=== PATIENT | female | born 1980 | race Caucasian/White ===

== ENCOUNTER 2021-04-25 10:58 | Outpatient (CLI) | payer OTHER, SELFPAY | END 2021-04-25 10:59 | disposition home or self-care (01) | LOC: ANHAUDIO 10:59 | DX: G43.919 Migraine, unspecified, intractable, without status migrainosus (principal) | CPT/HCPCS: 92557; 92567 ==

== ENCOUNTER 2024-03-20 11:17 | Outpatient (CLI) | payer OTHER, MEDICAID, SELFPAY ==
--- NOTE | ~2024-03-20 | CT_ITS ---
EXAMINATION: CT sinus wo con DATE: 03/20/2024 11:37 INDICATION: Maxillary sinusitis TECHNIQUE: Computed tomography (CT) of the paranasal sinuses was performed without intravenous contra st. The dose-length product was 269.39 mGy-cm. Automated exposure control and iterative reconstructio n technique were employed. COMPARISON: None FINDINGS: There is mild mucosal thickening of the maxillary and ethmoid sinuses. No air-fluid levels. Mastoids are pneumatized. Rightward nasal septal deviation. There is a left-sided jesús bullosa. Os tiomeatal units are patent. IMPRESSION: 1. Mild sinus disease. Reviewed, dictated and finalized at location B. IMPRESSION: 1. Mild sinus disease.
== END 2024-03-20 11:18 ==
LOC: MICIMG 11:18
PROVIDERS: PCP Nurse Practitioner Family; Visit Provider Otolaryngology
DX: J01.01 Acute recurrent maxillary sinusitis (principal)
CPT/HCPCS: 70486

== ENCOUNTER 2025-03-01 12:09 | Emergency (ER) | payer OTHER, MEDICAID, SELFPAY ==
[2025-03-01] VITALS (8 sets, daily range): BP systolic 127–146; BP diastolic 76–98; PULSE 68–111; RESP 15–20; TEMP 36.6; O2SAT 98–100
--- OUTSIDE RECORDS SUMMARY | 2025-03-01 12:11 | XMS_ITS | Patient Health Record ---
Author Organization [facility] Address [address] [facility] [address] [place] [address] Care Team Providers Care Legal Summer Intern Name Role Phone Larissa Barr Primary Care Provider UnavailEnrique Holden Unavailable [phone] Jerardo Brewer Unavailable [phone] aNv Etienne Unavailable [phone] Allergies Allergen (clinical drug ingredient) Drug/Non Drug Allergy documented on EMR Reaction Allergy Type Onset Date Status tetracycline Tetracycline Unknown Drug Allergy A ctive Results Component Value Reference Range Notes UDT Reviewed date:08/11/2024 09:20:08 AM Interpretation: Performing Lab: Notes/Report: THC n 0 - 50 ng/ml Cocaine n 0 - 300 ng/ml Amphetamine n 0 - 1000 ng/ml Buprenorphine (BUP) n 0 - 10 ng/ml Secobarbital (Bar) n 0 - 300 ng/ml Oxazepam (BZO) n 0 - 300 ng/ml 9-nygiarurqw-7,3-wmcoxsun-1,3-diphenylpyrrolidine (TOMAS P) n 0 - 300 ng/ml Methamphetamine (MET) n 0 - 1000 ng/ml Methylenedioxymethamphetamine (MDMA) n 0 - 500 ng/ml Morphine (MOP 300/[id number]) n 0 - 300 ng/ml Methadone (MTD) n 0 - 300 ng/ml Phencyclidine (PCP) n 0 - 25 ng/ml Nortriptyline (TCA) n 0 - 1000 ng/ml Oxycodone n 0 - 300 ng/ml x n 0 - 300 ng/ml UDT Reviewed date:08/07/2024 04:40:12 PM Interpretation: Performing Lab: Notes/Report: THC N 0 - 50 ng/ml Cocaine N 0 - 300 ng/ml Amphetamine N 0 - 1000 ng/ml Buprenorphine (BUP) N 0 - 10 ng/ml Secobarbital (Bar) N 0 - 300 ng/ml Oxazepam (BZO) N 0 - 300 ng/ml 6-cglbpmrjld-2,9-hmpkrrlv-9,3-diphenylpyrrolidine (TOMAS P) N 0 - 300 ng/ml Methamphetamine (MET) N 0 - 1000 ng/ml Methylenedioxymethamphetamine (MDMA) N 0 - 500 ng/ml Morphine (MOP 300/[id number]) N 0 - 300 ng/ml Methadone (MTD) N 0 - 300 ng/ml Phencyclidine (PCP) N 0 - 25 ng/ml Nortriptyline (TCA) N 0 - 1000 ng/ml Oxycodone N 0 - 300 ng/ml x N 0 - 300 ng/ml Reason For Referral No Information Medications Medication SIG (Take, Route, Frequency, Duration) Notes Start Date End Date Status Ondansetron 4 MG 1 tablet on the tong ue and allow to dissolve Orally Once a day Active Ketorolac Tromethamine 10 MG 1 tablet with food or milk as needed Orally every 6 hrs Active Meclizine HCl 25 MG 1 tablet as needed Orally every 12 hrs Active Cetirizine HCl 10 MG 1 tablet Orally Onc e a day Active Nurtec 75 MG 1 tablet on the tong ue and allow to dissolve Orally Active Verapamil HCl 120 MG 1 tablet Orally daily Active buPROPion HCl ER (XL) 150 MG 1 tablet in the morning Orally Once a day for 30 days 02/24/2025 Active Qelbree 200 MG 1 capsule Orally Onc e a day for 30 days Active Fluticasone Furoate 50 MCG/ACT 1 puff Inhalation Once a day Active Gabapentin 100 MG Oral for 30 Days Not-Taking Social History Tobacco Use: Social History Observation Description Date Details (start date - stop date) Never Smoker NA - NA Sex Assigned At : Social History Observation Description Sex Assigned At Female Tobacco Control (Standard) Question Answer Notes Tobacco use: Nonsmoker AUDIT-C (Standard) Question Answer Notes Did you have a drink containing alcohol in the p ast year? No Problems Problem Type SNOMED Code ICD Code Onset Dates Problem Status W/U Status Risk Notes Problem [id number] DEVYN (generalized anxiety disorder) (F41.1) Active confirmed Problem 21922199 ADHD (attention deficit hyperactivity disorder), combined type (F90.2) Active confirmed Problem 56294007 Difficulty concentrating (R41.840) Active confirmed Problem 44844616 Migraine without status migrainosus, not intractable, unspecified migraine type (G43.909) Active confirmed Vital Signs Heart Rate 100 /min 02/24/2025 Height-cm 162.56 cm 02/24/2025 Blood pressure diastolic 88 mm Hg 02/24/2025 Weight-kg 69.58 kg 02/24/2025 Height 64 in 02/24/2025 Blood pressure systolic 120 mm Hg 02/24/2025 Weight 153.4 lbs 02/24/2025 BMI 26.33 kg/m2 02/24/2025 Procedures Procedure Date Ordered Date Performed Result Body Sit e ADHD Testing 08/07/2024 N/A ADHD Testing 08/10/2024 N/A Encounters Encounter Location Date Provider Diagnosis [facility] Valentin Uzhun [place] [id number] [facility] [address] [address] 08/07/2024 [facility] Difficulty concentrating R41.840 [facility] Valentin [place] [address] [facility] [address] [facility] [address] [place] [address] 08/10/2024 Jerardo Brewer Difficulty concentrating R41.840 [facility] [place] [address] [facility] [address] [address] 09/15/2024 Enrique Flores DEVYN (generalized anxiety disorder) F41.1 ; ADHD (attention deficit hyperactivity disorder), combined type F90.2 and Migraine without status migrainosus, not intractable, unspecified migraine type G43.909 [facility] Valentin Uzhun [facility] [address] [facility] [address] [address] 10/08/2024 Enrique Flores DEVYN (generalized anxiety disorder) F41.1 ; ADHD (attention deficit hyperactivity disorder), combined type F90.2 and Migraine without status migrainosus, not intractable, unspecified migraine type G43.909 [facility] [address] [facility] [address] [address] 11/09/2024 Jerardo Osman DEVYN (generalized anxiety disorder) F41.1 ; ADHD (attention deficit hyperactivity disorder), combined type F90.2 and Migraine without status migrainosus, not intractable, unspecified migraine type G43.909 [facility] [address] [facility] [address] [facility] [address] [place] [address] 12/16/2024 Enrique Redmonda Encounter for screen ing for cardiovascular disorders Z13.6 ; DEVYN (generalized anxiety disorder) F41.1 ; ADHD (attention deficit hyperactivity disorder), combined type F90.2 and Migraine without status migrainosus, not intractable, unspecified migraine type G43.909 [facility] [employer] [facility] [address] [address] 01/20/2025 Enrique Clarkoza ADHD (attention defi cit hyperactivity disorder), combined type F90.2 ; Encounter for screening for depression Z13.31 ; Encounter for screening for cardiovascular disorders Z13.6 ; DEVYN (generalized anxiety disorder) F41.1 and Migraine without status migrainosus, not intractable, unspecified migraine type G43.909 [facility] [employer] [place] [address] [facility] [address] [facility] [address] [place] [address] 02/24/2025 Enrique Flores Encounter for screen ing for depression Z13.31 ; ADHD (attention deficit hyperactivity disorder), combined type F90.2 ; Encounter for screening for cardiovascular disorders Z13.6 ; DEVYN (generalized anxiety disorder) F41.1 and Migraine without status migrainosus, not intractable, unspecified migraine type G43.909 [facility] [employer] [place] [address] [facility] [address] [address] 11/17/2024 Enrique Flores [place] [address] [email or web address] [address] [address] 09/25/2024 Enrique Flores ADHD (attention defi cit hyperactivity disorder), combined type F90.2 [facility] [employer] [place] [address] [email or web address] [address] [facility] [address] [place] [address] 2024 Enrique Flores Assessments Encounter Date Diagnosis (ICD Code) Assessment Notes Treatment Notes Treatment Clinical Notes Section Notes 08/07/2024 Difficulty concentrating (ICD-10 - R41.840) 1. Suspected ADHD - She presents with concerns about possible ADHD, reporting forgetfulness, difficulty concentrating, and inattentiveness. - Family history of ADHD with two sisters diagnosed. - Reports difficulty sustaining attention, getting distracted when spoken to directly, and being reluctant to engage in tasks requiring sustained mental effort. Plan: a. Order ADHD testing for the patient. b. Schedule a follow-up appointment to review the test results. c. Educate the patient about the hospital policy regarding stimulant medications and substance use. 2. Insomnia - Gets 8 hours when off work, but only 4-5 hours when working. Plan: a. Encourage the patient to maintain a consistent sleep schedule and practice good sleep hygiene. b. Consider further evaluation and management if sleep issues persist. 3. Elevated Blood Pressure - Blood pressure found to be elevated during the visit. - She reports it may have been increasing in recent months. Plan: a. Advise the patient to monitor her blood pressure at home. b. Schedule an appointment with her primary care provider for further assessment. c. Note that if blood pressure remains elevated, stimulant medications for ADHD may not be appropriate. 08/10/2024 Difficulty concentrating (ICD-10 - R41.840) 09/15/2024 DEVYN (generalized anxiety disorder) (ICD-10 - F41.1) hx depression 1. ADHD - Combined Presentation: - Patient reports forgetfulness, distractibility, and difficulty sitting still. History of struggling in school and difficulty with time management. - ADHD testing conducted on August 10 suggests combined presentation. Plan: - Initiate Concerta 18 mg, one tablet every morning. Two-week supply to be sent to the pharmacy. - Patient to message provider before the two weeks is up to discuss effectiveness and potential dose adjustments. - Follow-up appointment in one month. 2. Migraines: - Patient experiences migraines at least 5 days a week and daily headaches. - Currently taking Nurtec and verapamil for migraines. Plan: - Continue current migraine medications. - Monitor for potential worsening of migraines with the initiation of Concerta for ADHD. 3. Anxiety: - Patient reports feeling nervous, on edge, and overthinking. - No current medications for anxiety. Plan: - Monitor anxiety symptoms during ADHD treatment with Concerta, as improvement in ADHD symptoms may also improve anxiety. 4. Depression: - Patient has a history of depression in 2021 and saw a therapist. - No current medications for depression. Plan: - Monitor depression symptoms during ADHD treatment with Concerta, as improvement in ADHD symptoms may also improve depression. 5. Sleep Issues: - Patient reports difficulty sleeping and feeling tired during the day. Plan: - Monitor sleep during ADHD treatment with Concerta. - Advise patient not to take Concerta late in the day to minimize sleep interference. 6. Medication Side Effects: - Patient experienced hallucinations on Lexapro, which resolved after discontinuation. - Patient has not yet started gabapentin due to concerns about side effects. Plan: - Start Concerta at a low dose (18 mg) to minimize side effects. - Monitor for any adverse effects during the two-week check-in and one-month follow-up appointment. 09/15/2024 ADHD (attention deficit hyperactivity disorder), combined type (ICD-10 - F90.2) hx depression 1. ADHD - Combined Presentation: - Patient reports forgetfulness, distractibility, and difficulty sitting still. History of struggling in school and difficulty with time management. - ADHD testing conducted on August 10 suggests combined presentation. Plan: - Initiate Concerta 18 mg, one tablet every morning. Two-week supply to be sent to the pharmacy. - Patient to message provider before the two weeks is up to discuss effectiveness and potential dose adjustments. - Follow-up appointment in one month. 2. Migraines: - Patient experiences migraines at least 5 days a week and daily headaches. - Currently taking Nurtec and verapamil for migraines. Plan: - Continue current migraine medications. - Monitor for potential worsening of migraines with the initiation of Concerta for ADHD. 3. Anxiety: - Patient reports feeling nervous, on edge, and overthinking. - No current medications for anxiety. Plan: - Monitor anxiety symptoms during ADHD treatment with Concerta, as improvement in ADHD symptoms may also improve anxiety. 4. Depression: - Patient has a history of depression in 2021 and saw a therapist. - No current medications for depression. Plan: - Monitor depression symptoms during ADHD treatment with Concerta, as improvement in ADHD symptoms may also improve depression. 5. Sleep Issues: - Patient reports difficulty sleeping and feeling tired during the day. Plan: - Monitor sleep during ADHD treatment with Concerta. - Advise patient not to take Concerta late in the day to minimize sleep interference. 6. Medication Side Effects: - Patient experienced hallucinations on Lexapro, which resolved after discontinuation. - Patient has not yet started gabapentin due to concerns about side effects. Plan: - Start Concerta at a low dose (18 mg) to minimize side effects. - Monitor for any adverse effects during the two-week check-in and one-month follow-up appointment. 09/25/2024 ADHD (attention deficit hyperactivity disorder), combined type (ICD-10 - F90.2) 10/08/2024 DEVYN (generalized anxiety disorder) (ICD-10 - F41.1) 1. ADHD: - Patient was initially started on Concerta 18 mg and then increased to 36 mg. - Patient reported increased anxiety, heart pounding, and worsening of possible Raynaud's symptoms while on Concerta. - Patient reported that the medication was not overly helpful in managing ADHD symptoms. Plan: - Discontinue Concerta. - Start the patient on Azstarys (39.2-7.8 mg) as an alternative methylphenidate- based medication. - Prescribe a 10-day supply. - Instruct the patient to call or send a message with feedback on the medication's effectiveness and side effects. 2. Anxiety: - Patient reported increased anxiety while on Concerta, particularly heart pounding over situations that would not typically cause anxiety. Plan: - Monitor the patient's anxiety levels after starting Azstarys. - If anxiety persists or worsens, consider alternative non-stimulant medications such as Strattera (Atomoxetine) for ADHD management. 3. Possible Raynaud's Phenomenon: - Patient reported a suspicion of having Raynaud's and experiencing worsening symptoms while on Concerta. Plan: - Monitor the patient's symptoms after discontinuing Concerta and starting Azstarys. - If symptoms persist or worsen, consider further evaluation and referral to a specialist for a definitive diagnosis and management. 12/16/2024 Encounter for screening for cardiovascular disorders (ICD-10 - Z13.6) 11/09/2024 DEVYN (generalized anxiety disorder) (ICD-10 - F41.1) 01/20/2025 ADHD (attention deficit hyperactivity disorder), combined type (ICD-10 - F90.2) 02/24/2025 Encounter for screening for depression (ICD-10 - Z13.31) 02/24/2025 ADHD (attention deficit hyperactivity disorder), combined type (ICD-10 - F90.2) 02/24/2025 Encounter for screening for cardiovascular disorders (ICD-10 - Z13.6) 11/09/2024 ADHD (attention deficit hyperactivity disorder), combined type (ICD-10 - F90.2) 01/20/2025 Encounter for screening for depression (ICD-10 - Z13.31) 12/16/2024 DEVYN (generalized anxiety disorder) (ICD-10 - F41.1) 10/08/2024 ADHD (attention deficit hyperactivity disorder), combined type (ICD-10 - F90.2) 1. ADHD: - Patient was initially started on Concerta 18 mg and then increased to 36 mg. - Patient reported increased anxiety, heart pounding, and worsening of possible Raynaud's symptoms while on Concerta. - Patient reported that the medication was not overly helpful in managing ADHD symptoms. Plan: - Discontinue Concerta. - Start the patient on Azstarys (39.2-7.8 mg) as an alternative methylphenidate- based medication. - Prescribe a 10-day supply. - Instruct the patient to call or send a message with feedback on the medication's effectiveness and side effects. 2. Anxiety: - Patient reported increased anxiety while on Concerta, particularly heart pounding over situations that would not typically cause anxiety. Plan: - Monitor the patient's anxiety levels after starting Azstarys. - If anxiety persists or worsens, consider alternative non-stimulant medications such as Strattera (Atomoxetine) for ADHD management. 3. Possible Raynaud's Phenomenon: - Patient reported a suspicion of having Raynaud's and experiencing worsening symptoms while on Concerta. Plan: - Monitor the patient's symptoms after discontinuing Concerta and starting Azstarys. - If symptoms persist or worsen, consider further evaluation and referral to a specialist for a definitive diagnosis and management. 09/15/2024 Migraine without status migrainosus, not intractable, unspecified migraine type (ICD-10 - G43.909) hx depression 1. ADHD - Combined Presentation: - Patient reports forgetfulness, distractibility, and difficulty sitting still. History of struggling in school and difficulty with time management. - ADHD testing conducted on August 10 suggests combined presentation. Plan: - Initiate Concerta 18 mg, one tablet every morning. Two-week supply to be sent to the pharmacy. - Patient to message provider before the two weeks is up to discuss effectiveness and potential dose adjustments. - Follow-up appointment in one month. 2. Migraines: - Patient experiences migraines at least 5 days a week and daily headaches. - Currently taking Nurtec and verapamil for migraines. Plan: - Continue current migraine medications. - Monitor for potential worsening of migraines with the initiation of Concerta for ADHD. 3. Anxiety: - Patient reports feeling nervous, on edge, and overthinking. - No current medications for anxiety. Plan: - Monitor anxiety symptoms during ADHD treatment with Concerta, as improvement in ADHD symptoms may also improve anxiety. 4. Depression: - Patient has a history of depression in 2021 and saw a therapist. - No current medications for depression. Plan: - Monitor depression symptoms during ADHD treatment with Concerta, as improvement in ADHD symptoms may also improve depression. 5. Sleep Issues: - Patient reports difficulty sleeping and feeling tired during the day. Plan: - Monitor sleep during ADHD treatment with Concerta. - Advise patient not to take Concerta late in the day to minimize sleep interference. 6. Medication Side Effects: - Patient experienced hallucinations on Lexapro, which resolved after discontinuation. - Patient has not yet started gabapentin due to concerns about side effects. Plan: - Start Concerta at a low dose (18 mg) to minimize side effects. - Monitor for any adverse effects during the two-week check-in and one-month follow-up appointment. 10/08/2024 Migraine without status migrainosus, not intractable, unspecified migraine type (ICD-10 - G43.909) 1. ADHD: - Patient was initially started on Concerta 18 mg and then increased to 36 mg. - Patient reported increased anxiety, heart pounding, and worsening of possible Raynaud's symptoms while on Concerta. - Patient reported that the medication was not overly helpful in managing ADHD symptoms. Plan: - Discontinue Concerta. - Start the patient on Azstarys (39.2-7.8 mg) as an alternative methylphenidate- based medication. - Prescribe a 10-day supply. - Instruct the patient to call or send a message with feedback on the medication's effectiveness and side effects. 2. Anxiety: - Patient reported increased anxiety while on Concerta, particularly heart pounding over situations that would not typically cause anxiety. Plan: - Monitor the patient's anxiety levels after starting Azstarys. - If anxiety persists or worsens, consider alternative non-stimulant medications such as Strattera (Atomoxetine) for ADHD management. 3. Possible Raynaud's Phenomenon: - Patient reported a suspicion of having Raynaud's and experiencing worsening symptoms while on Concerta. Plan: - Monitor the patient's symptoms after discontinuing Concerta and starting Azstarys. - If symptoms persist or worsen, consider further evaluation and referral to a specialist for a definitive diagnosis and management. 12/16/2024 ADHD (attention deficit hyperactivity disorder), combined type (ICD-10 - F90.2) 01/20/2025 DEVYN (generalized anxiety disorder) (ICD-10 - F41.1) 11/09/2024 Migraine without status migrainosus, not intractable, unspecified migraine type (ICD-10 - G43.909) 01/20/2025 Encounter for screening for cardiovascular disorders (ICD-10 - Z13.6) 02/24/2025 DEVYN (generalized anxiety disorder) (ICD-10 - F41.1) 02/24/2025 Migraine without status migrainosus, not intractable, unspecified migraine type (ICD-10 - G43.909) 01/20/2025 Migraine without status migrainosus, not intractable, unspecified migraine type (ICD-10 - G43.909) 12/16/2024 Migraine without status migrainosus, not intractable, unspecified migraine type (ICD-10 - G43.909) 08/07/2024 Other Learning About Depression Screening material was printed 1. Suspected ADHD - She presents with concerns about possible ADHD, reporting forgetfulness, difficulty concentrating, and inattentiveness. - Family history of ADHD with two sisters diagnosed. - Reports difficulty sustaining attention, getting distracted when spoken to directly, and being reluctant to engage in tasks requiring sustained mental effort. Plan: a. Order ADHD testing for the patient. b. Schedule a follow-up appointment to review the test results. c. Educate the patient about the hospital policy regarding stimulant medications and substance use. 2. Insomnia - Gets 8 hours when off work, but only 4-5 hours when working. Plan: a. Encourage the patient to maintain a consistent sleep schedule and practice good sleep hygiene. b. Consider further evaluation and management if sleep issues persist. 3. Elevated Blood Pressure - Blood pressure found to be elevated during the visit. - She reports it may have been increasing in recent months. Plan: a. Advise the patient to monitor her blood pressure at home. b. Schedule an appointment with her primary care provider for further assessment. c. Note that if blood pressure remains elevated, stimulant medications for ADHD may not be appropriate. 11/09/2024 Other ADHD - Plan: - Start atomoxetine 25 mg daily, increase to 40 mg daily after one week. - Educate patient that it may take three to four weeks to see results. - Follow up with [facility] in two weeks. Raynaud's Phenomenon - Plan: - Discontinue stimulant medications. - Monitor for any recurrence of symptoms. Mild Anemia - Plan: - Continue iron supplementation. - Monitor lab results for improvement. Depression and Anxiety - Plan: - Monitor patient's mental health during follow-up appointments. - Consider referral to a mental health professional if symptoms worsen or do not improve. Follow-up - Plan: - Schedule a follow-up appointment with [facility] in two weeks to assess the effectiveness of atomoxetine and monitor the patient's overall health. Additional Notes - Plan: - Educate patient on proper dosing of atomoxetine: 25 mg daily for one week, then increase to 40 mg daily. - Inform patient that atomoxetine may cause nausea and can be taken in the evening to mitigate side effects. - Consider future option of combining low-dose stimulant with atomoxetine if needed. 12/16/2024 Other 1. Attention Deficit Hyperactivity Disorder (ADHD): - Patient previously on Concerta, then switched to Azstarys due to Raynaud's syndrome concerns. - Started on atomoxetine [address] Brewer on November 09. - Reports uncertainty about medication efficacy, with increased interrupting and forgetfulness in past two weeks. Plan: - Increase atomoxetine dose from 40 mg to 80 mg daily. - Follow-up appointment in approximately one month to reassess efficacy. - Discussed potential for further dose increase up to 100 mg if needed. 2. Raynaud's Syndrome: - Patient reports ongoing symptoms, including blue discoloration of toes and numbness. - Symptoms are variable, with recent exacerbation noted while driving to work. - Patient unsure if symptoms are related to medication or environmental factors. - Discussed nature of Raynaud's syndrome, including episodic nature and potential triggers. - Noted stimulants and caffeine can contribute to symptom exacerbation due to vasoconstriction. Plan: - Continue to monitor Raynaud's symptoms, especially in relation to medication changes. - Advised patient about potential impact of stimulants and caffeine on symptoms. - Encouraged patient to be mindful of environmental triggers, such as cold exposure. Follow-up: - Scheduled in approximately one month to reassess efficacy of increased atomoxetine dosage and monitor Raynaud's symptoms. 01/20/2025 Lilia Hoskins, a patient with ADHD and Raynaud's disease, presents with ongoing ADHD symptoms and medication intolerance, particularly to atomoxetine and stimulants. Attention Deficit Hyperactivity Disorder (ADHD) Assessment: Patient reports persistent ADHD symptoms despite previous medication trials. Recent attempt with atomoxetine (Strattera) at 80 mg resulted in significant side effects, including constant headache, nausea, vomiting, increased heart rate, and elevated blood pressure. Prior trial of Concerta (methylphenidate) was less effective and exacerbated Raynaud's symptoms. Patient recalls positive response to venlafaxine (Effexor) in the past for focus improvement, despite withdrawal effects when doses were missed. Given the patient's sensitivity to medications and comorbid Raynaud's disease, non-stimulant options are being considered. Plan: - Discontinue atomoxetine due to adverse effects. - Initiate Qelbree (viloxazine) 200 mg PO daily for ADHD management. - Informed patient of potential for Raynaud's exacerbation, but lower risk compared to stimulants. - Discussed dosage range (200-600 mg) and rationale for starting at lowest dose due to medication sensitivity. - Follow up in approximately one month to assess Qelbree efficacy and tolerability. Raynaud's Disease Assessment: Patient reports Raynaud's symptoms, particularly affecting the feet. Previous medications for ADHD, including stimulants and atomoxetine, have exacerbated these symptoms. The condition impacts medication choices for both ADHD and migraine management. Plan: - Monitor Raynaud's symptoms closely with new medication regimen. - Educate patient on potential exacerbation of Raynaud's symptoms with new ADHD medication (Qelbree). - Advise patient to report any worsening of Raynaud's symptoms. the note is transcribed using speech recognition software. It is a reflection of a visit with the patient. It might have some inaccuracy, including medication names and transcribing errors, though efforts have been made to correct them. 02/24/2025 Other Lorenza Hoskins presents with ongoing ADHD symptoms and sleep disturbances, currently taking Qelbree 200 mg with suboptimal response and side effects. Attention Deficit Hyperactivity Disorder (ADHD) Assessment: Patient has been taking Qelbree 200 mg for approximately one month with suboptimal response. Reports daytime fatigue and nighttime sleep disturbances. Previous trials of methylphenidate and atomoxetine were not tolerated due to renal side effects. Stimulants are contraindicated due to potential worsening of renal function. 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 Unclear if sleep disturbances are related to Qelbree use or pre-existing condition. Plan: - Monitor sleep patterns with addition of bupropion and continued use of Qelbree - Reassess at follow-up the note is transcribed using speech recognition software. It is a reflection of a visit with the patient. It might have some inaccuracy, including medication names and transcribing errors, though efforts have been made to correct them. Plan Of Treatment Pending Test Test Name Order Date ADHD Testing 08/07/2024 ADHD Testing 08/10/2024 Next Appt Details Provider Name:Enrique werner, 03/31/2025 10:15:00 AM, [address], [facility] [address], [address], Insurance Providers Payer Name Payer Address Payer Phone Subscriber Number Group Number Insured Name Patient Relationship to Insured Coverage Start Date Coverage End Date [facility] [address] [place] [phone] [id number] Lorenza Hoskins Self - patient is the insured [place] [address] [address] [place] [phone] [id number] Lorenza Hoskins Self - patient is the insured Medical (General) History Medical History History ICD Code Past Psychiatric History: Anxiety Disord er abdominal aortic aneurysm: No atrial fibrillation: No chronic fatigue syndrome: No essential tremor: No hyperlipidemia: No hypertension: No Parkinson's disease: No restless leg syndrome: No stroke: No subdural hematoma: No type 1 diabetes mellitus: No type 2 diabetes mellitus: No vitamin B12 deficiency: No vitamin D deficiency: Yes endometriosis migraine headaches Surgical History Surgery Date(Month/Year) appendectomy laproscopy
--- OUTSIDE RECORDS SUMMARY | 2025-03-01 12:12 | XMS_ITS | Data Portability ---
Author Organization [facility] IRMANaylaia [facility] Address [address] [place] [address] Care Team Providers Care Civil Drafting Technician Name Role Phone NIKOLAY JOHN Primary Care Provider [phone] [facility] Explosive Technician SHELL EUGENE Neurologist Assessment No assessment recorded. Plan of Treatment Reminders Order Date Submit Date Provider Last Modified By Organization Details Last Modified Time Details Appointments None recorded. Lab measles + mumps + rubella virus IgG panel, QN, serum or plasma 2022 023 [facility], [address] [place] [address], [address], [place], [address], 3 14:11:43 varicella zoster virus IgG Ab, QN, IA, serum 2022 023 [facility], [address] [place] [address], [address], [place], [address], 3 14:11:44 hepatitis B surface Ab, qualitative , serum 2022 023 [facility], [address] [place] [address], [address], [place], [address], 3 14:11:42 Mycobacteri um tuberculosi s stimulated gamma interferon, qual, blood 2022 023 [facility], [address] [place] [address], [address], [place], [address], 3 14:11:40 urinalysis complete, reflex culture 2022 023 [facility] WONG, [address], [address], [place], [address], 3 14:11:41 urinalysis, dipstick 2022 023 [facility] In-Office Order, Internal Use Only DO Not Attach Compendium DO Not Attach Compendium, Do Not Delete/merge, [id number] 3 17:32:09 TSH + free T4, serum 2022 023 [facility], [address], [place], [address], 3 08:18:41 estradiol, serum 2022 023 [facility]IANJASMYN WONG, [address] [place], [place] [address]celestinekeli [address], [address], [place], [address], 3 08:18:43 progesteron e, serum 2022 023 [facility], [facility] [address], [address], [place], [address], 3 08:18:42 CMP, serum or plasma 2022 023 [facility]IAN[facility]ASMYN WONG, [facility] [address], [address], [place], [address], 3 15:58:46 lipid panel, serum 2022 023 [facility] WONG, [facility] [address] [address], [address], [place], [address], 3 15:58:45 CBC w/ auto diff 2022 023 [facility], [address] [facility], [address], [place], [address], 3 15:58:49 CBC w/ auto diff 2020 021 [facility] (Lab), [address], [place], [address], 20:25:09 Referral cardiologis t referral 2022 023 [facility] Referral Fax Line, [address], [address], [place], [address], 17:00:41 Procedures None recorded. Surgeries None recorded. Imaging MAMMO, screening, bilateral [address] [facility] ([facility] [address] [place], [address], 3 17:09:43 Medication Orders cetirizine 10 mg tablet 2022 023 [id number], [address] , [place], [address], 3 18:11:58 cetirizine 10 mg tablet 2020 021 [id number], [address], [place], [address], 1 12:37:52 Patient TargetsNo targets recorded. Patient Instructions Encounter Date Encounter Id Patient Instructions Last Modified By Organization Details Last Modified Time 01/23/2021 [id number] seasonal allergies: care instructions [email or web address] Not available 01/23/2021 12:37:48 learning about mood disorders [email or web address] Not available 01/23/2021 12:37:48 12/21/2022 [id number] Urinary Tract Infection (UTI) in Women: Care Instructions fatimah Not available 12/24/2022 08:09:18 04/10/2023 [id number] A healthy lifestyle: care instructions [email or web address] Not available 04/10/2023 15:37:47 visual acuity* [email or web address] Not available 0 04/10/2023 15:27:54 06/19/2023 [id number] A healthy lifestyle: care instructions [email or web address] Not available 06/19/2023 20:32:21 middle ear fluid : care instructions [email or web address] Not available 06/19/2023 20:32:21 Reason for Referral 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 4 Not Available [facility] (Lab) [address] [place], [address], 01/23/2021 20:25:09 01/24/20 21 01/23/2021 CBC w/ auto diff hemoglobin 13.3 g/dL 11.5-1 5.5 Not Available [facility] (Lab) [address] [place], [address], 01/23/2021 20:25:09 01/24/20 21 01/23/2021 CBC w/ auto diff hematocrit 42.4 % 36.0-4 8.0 Not Available [facility] (Lab) [address] [place], [address], 01/23/2021 20:25:09 01/24/20 21 01/23/2021 CBC w/ auto diff MCV 97 fL 80-95 high Not Available [facility] (Lab) [address] [place], [address], 01/23/2021 20:25:09 01/24/20 21 01/23/2021 CBC w/ auto diff MCH 31 pg 27-32 Not Available [facility] (Lab) [address] [place], [address], 01/23/2021 20:25:09 01/24/20 21 01/23/2021 CBC w/ auto diff MCHC 31 g/dL 32-36 low Not Available [facility] (Lab) [address] [place], [address], 01/23/2021 20:25:09 01/24/20 21 01/23/2021 CBC w/ auto diff platelets 249 K/uL 155-37 9 Not Available [facility] (Lab) [address] [place], [address], 01/23/2021 20:25:09 01/24/20 21 01/23/2021 CBC w/ auto diff RDW 13.9 % 11.5-1 4.5 Not Available [facility] (Lab) [address] [facility], [place], [address], 01/23/2021 20:25:09 01/24/20 21 01/23/2021 CBC w/ auto diff MPV 10.8 fL 8.9-12 .7 Not Available [facility] (Lab) [address] [place], [address], 01/23/2021 20:25:09 01/24/20 21 01/23/2021 CBC w/ auto diff neutrophils absolute 2.5 K/uL 1.4-7. 0 Not Available [facility] (Lab) [address] [place], [address], 01/23/2021 20:25:09 01/24/20 21 01/23/2021 CBC w/ auto diff lymphs (absolute) 1.2 K/uL 0.7-3. 1 Not Available [facility] (Lab) [address] [facility], [place], [address], 01/23/2021 20:25:09 01/24/20 21 01/23/2021 CBC w/ auto diff monocytes (absolute) 0.4 K/uL 0.1-0. 9 Not Available [facility] (Lab) [address] [facility], [place], [address], 01/23/2021 20:25:09 01/24/20 21 01/23/2021 CBC w/ auto diff eos (absolute) 0.1 K/uL 0.0-0. 4 Not Available [facility] (Lab) [address] [facility], [place], [address], 01/23/2021 20:25:09 01/24/20 21 01/23/2021 CBC w/ auto diff baso (absolute) 0.0 K/uL 0.0-0. 3 Not Available [facility] (Lab) [address] [facility], [place], [address], 01/23/2021 20:25:09 01/24/20 21 01/23/2021 CBC w/ auto diff neut % 58.6 % 40.0-7 4.0 Not Available [facility] (Lab) [address] [facility], [place], [address], 01/23/2021 20:25:09 01/24/20 21 01/23/2021 CBC w/ auto diff lymphs % 29.5 % 14.0-4 6.0 Not Available [facility] (Lab) [address] [place], [address], 01/23/2021 20:25:09 01/24/20 21 01/23/2021 CBC w/ auto diff mono % 9.3 % 4.0-12 .0 Not Available [facility] (Lab) [address] [place], [address], 01/23/2021 20:25:09 01/24/20 21 01/23/2021 CBC w/ auto diff eos % 2 % 0-5 Not Available [facility] (Lab) [address] [place], [address], 01/23/2021 20:25:09 01/24/2001/23/2021 CBC w/ auto diff baso % 0.5 % 0.0-1. 0 Not Available [facility] (Lab) [address] [place], [address], 01/23/2021 20:25:09 12/26/1912/26/2022 TSH+F REE T4 TSH 1.030 uIU/m L 0.450- 4.500 Not Available [facility] ([facility]) [address] [place], [address], 12/26/2022 08:18:41 12/26/1912/26/2022 TSH+F REE T4 T4,free(dire ct) 0.93 NG/dL 0.82-1 .77 Not Available [facility] ([facility]) [address] [place], [address], 12/26/2022 08:18:41 12/26/1912/26/2022 PROGE STERO NE progesterone 0.4 NG/mL Folli cular phase 0.1 - 0.9 Lutea l phase 1.8 - 23.9 Ovula tion phase 0.1 - 12.0 Pregn ant First trime ster 11.0 - 44.3 Secon d trime ster 25.4 - 83.3 Third trime ster 58.7 - 214.0 Postm enopa usal 0.0 - 0.1 Not Available [facility] ([facility]) [address] [place], [address], 12/26/2022 08:18:42 12/26/19 23 12/26/2022 ESTRA DIOL estradiol 25.3 pg/mL Adult Femal e: Folli cular phase 12.5 - 166.0 Ovula tion phase 85.8 - 498.0 Lutea l phase 43.8 - 211.0 Postm enopa usal <6.0 - 54.7 Pregn shelbi 1st trime ster 215.0 - >4300 .0 Lianne ECLIA metho dolog y Not Available [facility] ([facility]) [address] [place], [address], 12/26/2022 08:18:43 12/26/19 23 12/25/2022 LIPID PANEL cholesterol, total 273.7 mg/dL 140.0- 200.0 above high normal Not Available [facility] ([facility]) [address] [place], [address], 12/27/2022 15:58:45 12/26/19 23 12/25/2022 LIPID PANEL triglyceride s 205 mg/dL <=150 above high normal Not Available [facility] ([facility]) [address] [place], [address], 12/27/2022 15:58:45 12/26/19 23 12/25/2022 LIPID PANEL HDL cholesterol 42.0 mg/dL 40.0-1 00.0 Not Available [facility] ([facility]) [address] [place], [address], 12/27/2022 15:58:45 12/26/19 23 12/25/2022 LIPID PANEL VLDL cholesterol bart 41.00 mg/dL 5.00-4 0.00 above high normal Not Available [facility] ([facility]) [address] [place], [address], 12/27/2022 15:58:45 12/26/19 23 12/25/2022 LIPID PANEL LDL chol calc (nih) 192.5 Not Available [facility] ([facility]) [address] [place], [address], 12/27/2022 15:58:45 12/26/19 23 12/25/2022 COMP. METAB OLIC PANEL (14) glucose 88 mg/dL 65-99 ANION GP 17.0 mmol/ L N OSMOL 278.0 mOsM/ L N REFER ENCE RANGE : 275.0 -301. 0 Not Available [facility] ([facility]) [address] [facility] [place], [address], 12/27/2022 15:58:46 12/26/19 23 12/25/2022 COMP. METAB OLIC PANEL (14) BUN 16 mg/dL 8-26 Not Available [facility] ([facility]) [address] [facility] [place], [address], 12/27/2022 15:58:46 12/26/19 23 12/25/2022 COMP. METAB OLIC PANEL (14) creatinine 0.83 mg/dL 0.50-1 .40 Not Available [facility] ([facility]) [address] [facility] [place], [address], 12/27/2022 15:58:46 12/26/19 23 12/25/2022 COMP. METAB OLIC PANEL (14) eGFR 91 mL/mi n/1.7 3 >=60 Not Available [facility] ([facility]) [address] [facility] [place], [address], 12/27/2022 15:58:46 12/26/19 23 12/25/2022 COMP. METAB OLIC PANEL (14) BUN/creatini ne ratio 18.9 Not Available [facility] ([facility]) [address] [place], [address], 12/27/2022 15:58:46 12/26/19 23 12/25/2022 COMP. METAB OLIC PANEL (14) sodium 139.0 mmol/ L 136.0- 144.0 Not Available [facility] ([facility]) [address] [place], [address], 12/27/2022 15:58:46 12/26/19 23 12/25/2022 COMP. METAB OLIC PANEL (14) potassium 4.5 mmol/ L 3.5-5. 3 Not Available [facility] ([facility]) [address] [place], [address], 12/27/2022 15:58:46 12/26/19 23 12/25/2022 COMP. METAB OLIC PANEL (14) chloride 102 mmol/ l 101-11 1 Not Available [facility] ([facility]) [address] [place], [address], 12/27/2022 15:58:46 12/26/19 23 12/25/2022 COMP. METAB OLIC PANEL (14) carbon dioxide, total 24.5 mmol/ L 21.0-3 2.0 Not Available [facility] ([facility]) [address] [place], [address], 12/27/2022 15:58:46 12/26/19 23 12/25/2022 COMP. METAB OLIC PANEL (14) calcium 9.2 mg/dL 8.2-10 .0 Not Available [facility] ([facility]) [address] [place], [address], 12/27/2022 15:58:46 12/26/19 23 12/25/2022 COMP. METAB OLIC PANEL (14) protein, total 7.0 g/dL 6.7-8. 2 Not Available [facility] ([facility]) [address] [facility] [place], [address], 12/27/2022 15:58:46 12/26/19 23 12/25/2022 COMP. METAB OLIC PANEL (14) albumin 4.4 g/dL 3.5-5. 5 Not Available [facility] ([facility]) [address] [facility] [place], [address], 12/27/2022 15:58:46 12/26/19 23 12/25/2022 COMP. METAB OLIC PANEL (14) globulin, total 2.6 g/dL 1.5-4. 5 Not Available [facility] ([facility]) [address] [place], [address], 12/27/2022 15:58:46 12/26/19 23 12/25/2022 COMP. METAB OLIC PANEL (14) A/G ratio 1.7 Not Available [facility] ([facility]) [address] [place], [address], 12/27/2022 15:58:46 12/26/19 23 12/25/2022 COMP. METAB OLIC PANEL (14) bilirubin, total 0.2 mg/dL 0.0-1. 2 Not Available [facility] ([facility]) [address] [place], [address], 12/27/2022 15:58:46 12/26/19 23 12/25/2022 COMP. METAB OLIC PANEL (14) alkaline phosphatase 70.8 IU/L 42.0-1 21.0 Not Available [facility] ([facility]) [address] [place], [address], 12/27/2022 15:58:46 12/26/19 23 12/25/2022 COMP. METAB OLIC PANEL (14) AST (SGOT) 19.7 U/L 10.0-4 2.0 Not Available [facility] ([facility]) [address] [place], [address], 12/27/2022 15:58:46 12/26/19 23 12/25/2022 COMP. METAB OLIC PANEL (14) ALT (SGPT) 18.1 U/L 10.0-6 0.0 Not Available [facility] ([facility]) [address] [place], [address], 12/27/2022 15:58:46 12/26/19 23 12/25/2022 CBC WITH DIFFE RENTI AL/PL ATELE T WBC 8.5 K/uL 3.4-10 .8 Not Available [facility] ([facility]) [address] [facility] [place], [address], 12/27/2022 15:58:48 12/26/19 23 12/25/2022 CBC WITH DIFFE RENTI AL/PL ATELE T RBC 4.1 M/uL 4.2-5. 4 below low normal Not Available [facility] ([facility]) [address] [facility], [place], [address], 12/27/2022 15:58:48 12/26/19 23 12/25/2022 CBC WITH DIFFE RENTI AL/PL ATELE T hemoglobin 12.0 g/dL 11.5-1 5.5 Not Available [facility] ([facility]) [address] [facility], [place], [address], 12/27/2022 15:58:48 12/26/19 23 12/25/2022 CBC WITH DIFFE RENTI AL/PL ATELE T hematocrit 38.0 % 36.0-4 8.0 Not Available [facility] ([facility]) [address] [facility], [place], [address], 12/27/2022 15:58:48 12/26/19 23 12/25/2022 CBC WITH DIFFE RENTI AL/PL ATELE T MCV 93 fL 80-95 Not Available [facility] ([facility]) [address] [place], [address], 12/27/2022 15:58:48 12/26/19 23 12/25/2022 CBC WITH DIFFE RENTI AL/PL ATELE T MCH 29 pg 27-32 Not Available [facility] ([facility]) [address] [place], [address], 12/27/2022 15:58:48 12/26/19 23 12/25/2022 CBC WITH DIFFE RENTI AL/PL ATELE T MCHC 32 g/dL 32-36 Not Available [facility] ([facility]) [address] [place], [address], 12/27/2022 15:58:48 12/26/19 23 12/25/2022 CBC WITH DIFFE RENTI AL/PL ATELE T RDW 13.8 % 11.5-1 4.5 Not Available [facility] ([facility]) [address] [facility], [place], [address], 12/27/2022 15:58:48 12/26/19 23 12/25/2022 CBC WITH DIFFE RENTI AL/PL ATELE T platelets 267 K/uL 155-37 9 MPV 10.4 FL 8.9-1 2.7 N Not Available [facility] ([facility]) [address] [facility], [place], [address], 12/27/2022 15:58:48 12/26/19 23 12/25/2022 CBC WITH DIFFE RENTI AL/PL ATELE T neutrophils 72.6 % 40.0-7 4.0 Not Available [facility] ([facility]) [address] [facility], [place], [address], 12/27/2022 15:58:48 12/26/19 23 12/25/2022 CBC WITH DIFFE RENTI AL/PL ATELE T lymphs 17.4 % 14.0-4 6.0 Not Available [facility] ([facility]) [address] [facility], [place], [address], 12/27/2022 15:58:48 12/26/19 23 12/25/2022 CBC WITH DIFFE RENTI AL/PL ATELE T monocytes 6.6 % 4.0-12 .0 Not Available [facility] ([facility]) [address] [place], [address], 12/27/2022 15:58:48 12/26/19 23 12/25/2022 CBC WITH DIFFE RENTI AL/PL ATELE T eos 2 % 0-5 Not Available [facility] ([facility]) [address] [place], [address], 12/27/2022 15:58:48 12/26/19 23 12/25/2022 CBC WITH DIFFE RENTI AL/PL ATELE T basos 0.7 % 0.0-1. 0 Not Available [facility] ([facility]) [address] [facility], [place], [address], 12/27/2022 15:58:48 12/26/19 23 12/25/2022 CBC WITH DIFFE RENTI AL/PL ATELE T neutrophils (absolute) 6.2 K/uL 1.4-7. 0 Not Available [facility] ([facility]) [address] [place], [address], 12/27/2022 15:58:48 12/26/19 23 12/25/2022 CBC WITH DIFFE RENTI AL/PL ATELE T lymphs (absolute) 1.5 K/uL 0.7-3. 1 Not Available [facility] ([facility]) [address] [place], [address], 12/27/2022 15:58:48 12/26/19 23 12/25/2022 CBC WITH DIFFE RENTI AL/PL ATELE T monocytes(ab solute) 0.6 K/uL 0.1-0. 9 Not Available [facility] ([facility]) [address] [place], [address], 12/27/2022 15:58:48 12/26/19 23 12/25/2022 CBC WITH DIFFE RENTI AL/PL ATELE T eos (absolute) 0.1 K/uL 0.0-0. 4 Not Available [facility] ([facility]) [address] [place], [address], 12/27/2022 15:58:48 12/26/19 23 12/25/2022 CBC WITH DIFFE RENTI AL/PL ATELE T baso (absolute) 0.1 K/uL 0.0-0. 3 Not Available [facility] ([facility]) [address] [facility], [place], [address], 12/27/2022 15:58:48 12/26/19 23 12/25/2022 CBC WITH DIFFE RENTI AL/PL ATELE T immature granulocytes 1.2 % Not Available [facility]) [address] [facility], [place], [address], 12/27/2022 15:58:48 12/26/19 23 12/25/2022 CBC WITH DIFFE RENTI AL/PL ATELE T immature grans (abs) 0.1 K/uL Not Available [facility] ([facility]) [address] [facility], [place], [address], 12/27/2022 15:58:48 12/26/19 23 12/25/2022 CBC WITH DIFFE RENTI AL/PL ATELE T NRBC 0 % Not Available [facility] ([facility]) [address] [facility], [place], [address], 12/27/2022 15:58:48 12/26/19 23 12/25/2022 urina lysis , dipst ick Leukocytes Trace Not Available In-Offi ce Order Internal Use Only DO Not Attach Compendium DO Not Attach Compendium, Do Not Delete/merge, [id number] 12/21/2022 18:11:06 12/26/19 23 12/25/2022 urina lysis , dipst ick Nitrite negati ve Not Available In-Office Order Internal Use Only DO Not Attach Compendium DO Not Attach Compendium, Do Not Delete/merge, [id number] 12/21/2022 18:11:06 12/26/19 23 12/25/2022 urina lysis , dipst ick Urobilinogen .2 Not Available In-Of fice Order Internal Use Only DO Not Attach Compendium DO Not Attach Compendium, Do Not Delete/merge, [id number] 12/21/2022 18:11:06 12/26/19 23 12/25/2022 urina lysis , dipst ick Protein Negati ve Not Available In-Office Order Internal Use Only DO Not Attach Compendium DO Not Attach Compendium, Do Not Delete/merge, 12/21/2022 18:11:06 12/26/19 23 12/25/2022 urina lysis , dipst ick pH 7.5 Not Available In-Office Order Internal Use Only DO Not Attach Compendium DO Not Attach Compendium, Do Not Delete/merge, 12/21/2022 18:11:06 12/26/19 23 12/25/2022 urina lysis , dipst ick Blood Negati ve Not Available In-Office Order Internal Use Only DO Not Attach Compendium DO Not Attach Compendium, Do Not Delete/merge, 12/21/2022 18:11:06 12/26/19 23 12/25/2022 urina lysis , dipst ick Specific [place] 1.020 Not Available In-Off ice Order Internal Use Only DO Not Attach Compendium DO Not Attach Compendium, Do Not Delete/merge, 12/21/2022 18:11:06 12/26/19 23 12/25/2022 urina lysis , dipst ick Ketone Negati ve Not Available In-Office Order Internal Use Only DO Not Attach Compendium DO Not Attach Compendium, Do Not Delete/merge, 12/21/2022 18:11:06 12/26/19 23 12/25/2022 urina lysis , dipst ick Bilirubin Negati ve Not Available In-Office Order Internal Use Only DO Not Attach Compendium DO Not Attach Compendium, Do Not Delete/merge, 12/21/2022 18:11:06 12/26/19 23 12/25/2022 urina lysis , dipst ick Glucose Negati ve Not Available In-Office Order Internal Use Only DO Not Attach Compendium DO Not Attach Compendium, Do Not Delete/merge, 12/21/2022 18:11:06 12/26/19 23 12/25/2022 urina lysis , dipst ick Appearance Clear Not Available In-Offi ce Order Internal Use Only DO Not Attach Compendium DO Not Attach Compendium, Do Not Delete/merge, 12/21/2022 18:11:06 12/26/19 23 12/25/2022 urina lysis , dipst ick Color Yellow Not Available In-Office Order Internal Use Only DO Not Attach Compendium DO Not Attach Compendium, Do Not Delete/merge, [id number] 12/21/2022 18:11:06 12/26/19 23 12/25/2022 CARDI OVASC ULAR REPOR T interpretati on Note Suppl ement al repor t is avail able. Not Available [facility] ([facility]) [address] [facility], [place], [address], 12/27/2022 15:58:48 12/26/19 23 12/25/2022 CARDI OVASC ULAR REPOR T pdf . Not Available [facility] ([facility]) [address] [facility], [place], [address], 12/27/2022 15:58:48 04/10/20 23 04/11/2023 QUANT IFERO N-TB GOLD PLUS quantiferon incubation Incuba tion perfor med. Not Available [facility] ([facility]) [address] [facility], [place], [address], 04/12/2023 14:11:40 04/10/2004/11/2023 QUANT IFERO N-TB GOLD PLUS quantiferon criteria Commen t Quant iFERO N-TB Gold Plus is a quali tativ e indir ect test for M tuber culos is infec tion (incl uding disea se) and is inten ded for use in conju nctio n with risk asses sment , radio graph y, and other medic al and diagn ostic evalu ation s. The Quant iFERO N-TB Gold Plus resul t is deter mined by subtr actin g the Nil value from eithe r TB antig en (Ag) value . The Mitog en tube serve s as a contr ol for the test. Not Available [facility] ([facility]) [address] [facility], [place], [address], 04/12/2023 14:11:40 04/10/20 23 04/12/2023 QUANT IFERO N-TB GOLD PLUS quantiferon- TB gold plus Negati ve negati ve No respo nse to M osiel pappas is antig ens detec nic. Infec tion with M osiel keeos is is unlik lucas, but high risk indiv idual s shoul d be consi dered for addit ional testi ng (ATS/ IDSA/ CDC Clini bart Pract ice Guide lines , 2017) . The refer ence range is an Antig en minus Nil resul t of <0.35 IU/mL . Chemi lumin escen ce immun oassa y metho dolog y Not Available [facility] ([facility]) [address] [place], [address], 04/12/2023 14:11:40 04/10/20 23 04/12/2023 QUANT IFERO N-TB GOLD PLUS quantiferon TB1 Ag value 0.05 IU/mL Not Available [facility]) [address] [place], [address], 04/12/2023 14:11:40 04/10/20 23 04/12/2023 QUANT IFERO N-TB GOLD PLUS quantiferon TB2 Ag value 0.07 IU/mL Not Available [facility]) [address] [place], [address], 04/12/2023 14:11:40 04/10/20 23 04/12/2023 QUANT IFERO N-TB GOLD PLUS quantiferon nil value 0.08 IU/mL Not Available [facility] ([facility]) [address] [place], [address], 04/12/2023 14:11:40 04/10/20 23 04/12/2023 QUANT IFERO N-TB GOLD PLUS quantiferon mitogen value >10.00 IU/mL Not Available [facility] ([facility]) [address] [place], [address], 04/12/2023 14:11:40 04/10/2004/11/2023 HEP B SURFA CE AB, QUAL hep B surface Ab, qual Non Reacti ve Non React marlee: Incon siste nt with immun ity, less than 10 mIU/m L React marlee: Consi stent with immun ity, great er than 9.9 mIU/m L Not Available [facility] ([facility]) [address] [place], [address], 04/12/2023 14:11:42 04/10/2004/11/2023 MEASL ES/MU MPS/R UBELL A IMMUN ITY rubella antibodies, IgG 4.29 index immune >0.99 Non-i mmune <0.90 Equiv ocal 0.90 - 0.99 Immun e >0.99 Not Available [facility] ([facility]) [address] [facility], [place], [address], 04/12/2023 14:11:43 04/10/20 23 04/11/2023 MEASL ES/MU MPS/R UBELL A IMMUN ITY measles antibodies, IgG 108.0 AU/mL immune >16.4 Negat marlee <13.5 Equiv ocal 13.5 - 16.4 Posit marlee >16.4 Prese nce of antib odies to [place]ube[place] la is presu mptiv e evide nce of immun ity excep t when acute infec tion is suspe cted. Not Available [facility] ([facility]) [address] [facility], [place], [address], 04/12/2023 14:11:43 04/10/20 23 04/11/2023 MEASL ES/MU MPS/R UBELL A IMMUN ITY mumps abs, IgG 72.5 AU/mL immune >10.9 Negat marlee <9.0 Equiv ocal 9.0 - 10.9 Posit marlee >10.9 A posit marlee resul t gener ally indic ates past expos ure to Mumps virus or previ ous vacci natio n. Not Available [facility] ([facility]) [address] [place], [address], 04/12/2023 14:11:43 04/10/20 23 04/11/2023 VARIC SERENE- ZOSTE R V AB, IGG varicella zoster IgG 1102 index immune >165 Negat marlee <135 Equiv ocal 135 - 165 Posit marlee >165 A posit marlee resul t gener ally indic ates expos ure to the patho gen or admin istra tion of speci fic immun oglob ulins , but it is not indic ation of activ e infec tion or stage of disea se. Not Available [facility] ([facility]) [address] [place], [address], 04/12/2023 14:11:43 04/10/20 23 04/12/2023 URINE CULTU RE, ROUTI NE urine culture, routine Final report Not Available [facility] ([facility]) [address] [place], [address], 04/12/2023 14:11:42 04/10/20 23 04/12/2023 URINE CULTU RE, ROUTI NE result 1 Commen t Mixed uroge nital jose 25,00 0-50, 000 colon y formi ng units per mL Not Available [facility] ([facility]) [address] [place], [address], 04/12/2023 14:11:42 04/10/20 23 04/11/2023 UA/M W/RFL X CULTU RE, ROUTI NE specific gravity 1.012 1.005- 1.030 Not Available [facility] ([facility]) [address] [place], [address], 04/12/2023 14:11:41 04/10/20 23 04/11/2023 UA/M W/RFL X CULTU RE, ROUTI NE pH 7.0 5.0-7. 5 Not Available [facility] ([facility]) [address] [place], [address], 04/12/2023 14:11:41 04/10/20 23 04/11/2023 UA/M W/RFL X CULTU RE, ROSAI NE urine-color Yellow yellow Not Available [facility] ([facility]) [address] [place], [address], 04/12/2023 14:11:41 04/10/20 23 04/11/2023 UA/M W/RFL X CULTU RE, ROUTI NE appearance Clear clear Not Available [facility] ([facility]) [address] [place], [address], 04/12/2023 14:11:41 04/10/20 23 04/11/2023 UA/M W/RFL X CULTU RE, ROUTI NE WBC esterase Trace negati ve abnormal Not Available [facility] ([facility]) [address] [place], [address], 04/12/2023 14:11:41 04/10/20 23 04/11/2023 UA/M W/RFL X CULTU RE, ROUTI NE protein Negati ve negati ve/tra ce Not Available [facility] ([facility]) [address] [place], [address], 04/12/2023 14:11:41 04/10/20 23 04/11/2023 UA/M W/RFL X CULTU RE ROUTDasha NE glucose Negati ve negati ve Not Available [facility] ([facility]) [address] [place], [address], 04/12/2023 14:11:41 04/10/20 23 04/11/2023 UA/M W/RFL X CULTU RE, ROUTI NE ketones Negati ve negati ve Not Available [facility] ([facility]) [address] [place], [address], 04/12/2023 14:11:41 04/10/20 23 04/11/2023 UA/M W/RFL X CULTU RE, ROUTI NE occult blood Negati ve negati ve Not Available [facility] ([facility]) [address] [facility], [place], [address], 04/12/2023 14:11:41 04/10/20 23 04/11/2023 UA/M W/RFL X CULTU RE, ROUTI NE bilirubin Negati ve negati ve Not Available [facility] ([facility]) [address] [facility], [place], [address], 04/12/2023 14:11:41 04/10/20 23 04/11/2023 UA/M W/RFL X CULTU RE, ROUTI NE urobilinogen ,semi-qn 0.2 mg/dL 0.2-1. 0 Not Available [facility] ([facility]) [address] [facility], [place], [address], 04/12/2023 14:11:41 04/10/20 23 04/11/2023 UA/M W/RFL X CULTU RE, ROUTI NE nitrite, urine Negati ve negati ve Not Available [facility] ([facility]) [address] [facility], [place], [address], 04/12/2023 14:11:41 04/10/20 23 04/11/2023 UA/M W/RFL X CULTU RE, ROUTI NE microscopic examination See below: Micro scopi c was indic ated and was perfo rmed. Not Available [facility] ([facility]) [address] [facility], [place], [address], 04/12/2023 14:11:41 04/10/20 23 04/11/2023 UA/M W/RFL X CULTU RE, ROUTI NE urinalysis reflex Commen t This speci men has refle xed to a Urine Cultu re. Not Available [facility] ([facility]) [address] [place], [address], 04/12/2023 14:11:41 04/10/20 23 04/11/2023 MICRO SCOPI C EXAMI NATIO N WBC None seen /hpf 0-5 Not Available [facility] ([facility]) [address] [facility], [place], [address], 04/12/2023 14:11:41 04/10/20 23 04/11/2023 MICRO SCOPI C EXAMI NATIO N RBC 0-2 /hpf 0-2 Not Available [facility] ([facility]) [address] [facility], [place], [address], 04/12/2023 14:11:41 04/10/20 23 04/11/2023 MICRO SCOPI C EXAMI NATIO N epithelial cells (non renal) 0-10 /hpf 0-10 Not Available [facility] ([facility]) [address] [facility], [place], [address], 04/12/2023 14:11:41 04/10/20 23 04/11/2023 MICRO SCOPI C EXAMI NATIO N casts None seen /lpf nonese en Not Available [facility] ([facility]) [address] [facility], [place], [address], 04/12/2023 14:11:41 04/10/20 23 04/11/2023 MICRO SCOPI C EXAMI NATIO N bacteria None seen nonese en/few Not Available [facility] ([facility]) [address] [facility], [place], [address], 04/12/2023 14:11:41 04/10/20 23 04/10/2023 visua l acuit y* R Eye Uncorrected 20/20 Not Available In-O ffice Order Internal Use Only DO Not Attach Compendium DO Not Attach Compendium, Do Not Delete/merge, [id number] 04/10/2023 15:12:24 04/10/20 23 04/10/2023 visua l acuit y* L Eye Uncorrected 20/20 Not Available In-O ffice Order Internal Use Only DO Not Attach Compendium DO Not Attach Compendium, Do Not Delete/merge, [id number] 04/10/2023 15:12:24 01/19/20 23 01/18/2023 cardi ac monit or No observ ation record ed. jjealdair [facility] [address], [place], [address], 01/21/2023 13:00:57 02/12/20 23 02/11/2023 cardi ac stres s test No observ ation record ed. mmmichael [facility] [address], [place], [address], 02/13/2023 16:03:59 02/12/20 23 02/11/2023 cardi ac stres s test No observ ation record ed. li [facility] [address], [place], [address], 02/13/2023 16:04:28 02/12/20 23 02/11/2023 cardi ac stres s test No observ ation record ed. [facility] [address], [place], [address], 02/13/2023 16:04:43 07/03/20 23 07/03/2023 MAMMO , scree javi, bilat eral No observ ation record ed. [place] [id number] [facility] , [place], [address], 07/18/2023 10:26:55 Result Notes None recorded. Problems Name Problem SNOMED Code Status Onset Date Resolution Date Notes Provider Name and Address Organization Details Recorded Time History of anemia 710344576 Active Not Available [facility] 17:12:34 Migraine 68283200 Active Not Available [facility] 17:12:34 Depressive disorder 10528126 Active Not Available [facility] 17:12:34 Nausea 841885915 Active Not Available [facility] 17:12:34 Urinary tract infectious disease 20574784 Active Not Available [facility] 4 17:12:34 Problem Notes None recorded. Procedures Surgical History Date Name Laterality Status Provider Name and Address Organization Details Recorded Time 9 Appendectomy completed Parvin Moreno MA [facility] 12/24/2014 17:53:16 Imaging Results None recorded. Procedure Notes None recorded. Medical Equipment None Reported. Allergies Allergen ID Allergen Name Allergen Category Reaction Reaction Severity Criticality Documentation Date Start Date Code Code System Note Provider Name and Address Organization Details Recorded Time 95110 tetracycl ine medicatio n Not available Not available Not available 12/24/2014 69935 RxNorm Parvin Moreno [place] null, [place] - [place] 5 17:53:16 25444 escitalop stephanie Not available hallucina tions Not available Not available 06/27/2017 65176 8 RxNorm Nikolay John MD Attn: Mukul martinez,[address] [facility], [place], [address]FORMERLY [facility] 7 16:59:49 Medications Name Sig Start Date Stop Date Status Note LastModified by Organization Details LastModified Time cyclobenzap rine 10 mg tablet 04/14 completed Not Available Not Available Not Available propranolol 80 mg tablet TAKE 1 TABLET BY MOUTH TWICE A DAY 04/14 completed Not Available Not Available Not Available trazodone 50 mg tablet 04/14 completed Not Available Not Available Not Available cetirizine 10 mg tablet TAKE 1 TABLET BY MOUTH EVERY DAY active Not Available Not Available No t Available azithromyci n 250 mg tablet 04/14 completed Not Available Not Available Not Available ibuprofen 800 mg tablet 04/14 completed Not Available Not Available Not Available hydrocodone 5 mg-acetamin ophen 325 mg tablet 05/01 completed Not Available Not Available Not Available prednisone 20 mg tablet TAKE 2 TABLETS BY ORAL ROUTE ONCE DAILY FOR 5 DAYS TAKE WITH FOOD 06/19 completed Not Available Not Available Not Available Tubersol 5 tub. unit/0.1 mL intradermal injection solution 10/22 completed Not Available Not Available Not Available sertraline 100 mg tablet 10/22 completed Not Available Not Available Not Available prednisone 5 mg tablet 04/14 completed Not Available Not Available Not Available topiramate 25 mg tablet 1 tab twice daily for one week then 2 tabs twice daily. 05/01 completed Not Available Not Available Not Available acetaminoph en 300 mg-codeine 30 mg tablet Take 1 tablet every 6 hours by oral route as needed. 05/01 completed Not Available Not Available Not Available butalbital- acetaminoph en-caffeine 50 mg-325 mg-40 mg tablet TAKE 1 TABLET BY MOUTH EVERY 4 HOURS NEEDED FOR HEADACHE *MUST LAST 30 DAYS* active Not Available Not Available No t Available ketorolac 10 mg tablet TAKE 1 TABLET BY MOUTH EVERY 8 HOURS NEEDED FOR SEVERE HEADACHE. *TAKE FOR MAX OF 5 DAYS* active Not Available Not Available No t Available nortriptyli ne 25 mg capsule 10/22 completed Not Available Not Available Not Available amoxicillin 875 mg tablet TAKE 1 TABLET ORAL ROUTE EVERY 12 HOURS FOR 10 DAYS active Not Available Not Available No t Available amitriptyli ne 25 mg tablet Take 1 tablet every day by oral route. 05/01 completed Not Available Not Available Not Available gentamicin 0.3 % eye drops 11/23 completed Not Available Not Available Not Available meclizine 25 mg tablet TAKE 1 TABLET BY MOUTH EVERY DAY NEEDED FOR DIZZINESS active Not Available Not Available No t Available phenazopyri dine 100 mg tablet active Not Available Not Available Not Available paroxetine 20 mg tablet 11/23 completed Not Available Not Available Not Available ferrous sulfate 325 mg (65 mg iron) tablet TAKE 1 TABLET BY MOUTH EVERY DAY 11/23 completed Not Available Not Available Not Available nitrofurant oin macrocrysta l 100 mg capsule Take 1 capsule twice a day by oral route as directed for 5 days. 11/23 completed Not Available Not Available Not Available butalbital 50 mg-acetamin ophen 325 mg-caffeine 40 mg-codeine 30 mg cap Take 1 capsule every 4 hours by oral route as needed. 01/23 completed Not Available Not Available Not Available bupropion HCl 75 mg tablet TAKE ONE TABLET BY MOUTH DAILY BEGIN AFTER TAPER OFF CYMBALTA 11/23 completed Not Available Not Available Not Available omeprazole 20 mg capsule,del ayed release TAKE 1 CAPSULE BY MOUTH EVERY DAY WHILE ON PREDNISON E active Not Available Not Available No t Available hydroxyzine HCl 25 mg tablet 11/23 completed Not Available Not Available Not Available methylpredn isolone 4 mg tablets in a dose pack 11/23 completed Not Available Not Available Not Available ondansetron 4 mg disintegrat ing tablet DISSOLVE 1 TABLET ON THE TONGUE EVERY 6 HOURS NEEDED FOR NAUSEA/VO MITING active Not Available Not Available No t Available fluticasone propionate 50 mcg/actuati on nasal spray,suspe nsion INHALE 1 SPRAY IN EACH NOSTRIL TWICE A DAY 10/22 completed Not Available Not Available Not Available sertraline 50 mg tablet 04/14 completed Not Available Not Available Not Available dicyclomine 10 mg capsule TAKE 1 CAPSULE BY MOUTH TWICE A DAY NEEDED 01/23 completed Not Available Not Available Not Available amoxicillin 875 mg-potassiu m clavulanate 125 mg tablet 11/23 completed Not Available Not Available Not Available amoxicillin 500 mg-potassiu m clavulanate 125 mg tablet Take by oral route for 10 days. 11/23 completed Not Available Not Available Not Available Ventolin HFA 90 mcg/actuati on aerosol inhaler 10/22 completed Not Available Not Available Not Available neomycin-po lymyxin-hyd rocort 3.5 mg-10,000 unit/mL-1 % ear drops,susp 06/27 completed Not Available Not Available Not Available escitalopra m 10 mg tablet Take 1 tablet every day by oral route. 06/27 completed Not Available Not Available Not Available escitalopra m 20 mg tablet Take 1 tablet every day by oral route. 06/27 completed Not Available Not Available Not Available Sobia 0.35 mg tablet 05/01 completed Not Available Not Available Not Available topiramate 50 mg tablet 04/14 completed Not Available Not Available Not Available nitrofurant oin monohydrate /macrocryst als 100 mg capsule TAKE 1 CAPSULE BY MOUTH EVERY 12 HOURS FOR 7 DAYS 06/19 completed Not Available Not Available Not Available duloxetine 20 mg capsule,del ayed release TAKE 1 CAPSULE BY MOUTH EVERY DAY. TITRATION STEP 2. 11/23 completed Not Available Not Available Not Available duloxetine 30 mg capsule,del ayed release TAKE 1 CAPSULE BY MOUTH EVERY DAY 11/23 completed Not Available Not Available Not Available duloxetine 60 mg capsule,del ayed release 02/17 /2021 completed Not Available Not Available Not Available Lo Loestrin Fe Control 11/23 completed Not Available Not Available Not Available [facility] ODT 75 mg disintegrat ing tablet TAKE 1 TABLET BY MOUTH ONCE DAILY NEEDED FOR MIGRAINE active Not Available Not Available No t Available Ajovy 225 mg/1.5 mL subcutaneou s auto-inject or INJECT 225 MG SUBCUTANE OUSLY EVERY 30 DAYS active Not Available Not Available No t Available Qulipta 60 mg tablet TAKE 1 TABLET BY MOUTH EVERY DAY active Not Available Not Available No t Available Vitals Date Recorded Systolic And Diastolic Provider Name and Address Organization Details Last Updated DateTime 12/21/2022 123/79 mm[Hg] MANDI SANTAMARIA NP Attn: Accounting,[address] [place], [address], [facility] 12/21/2022 18:08:40 Date Recorded Body height Body mass index (BMI) Body weight Oxygen saturation Oxygen saturation in Arterial blood by Pulse oximetry Heart rate Respiratory rate Body temperature Provider Name and Address Organization Details Last Updated DateTime 3 162.56 cm 25.2 kg/m2 36511.0 8 g 99 % 99 % 108 /min 20 /min 97.4 [degF] Olga Oconnor MA [facility] 3 17:21:06 Date Recorded Body height Respiratory rate Body temperature Heart rate Oxygen saturation Oxygen saturation in Arterial blood by Pulse oximetry Body mass index (BMI) Body weight Systolic And Diastolic Provider Name and Address Organization Details Last Updated DateTime 1 162.56 cm 18 /min 98.9 [degF] 90 /min 98 % 98 % 24.1 kg/m2 70099.7 3 g 108/78 mm[Hg] Ignacio Young MA [facility] 1 12:18:52 Date Recorded Body height Body mass index (BMI) Body weight Oxygen saturation Oxygen saturation in Arterial blood by Pulse oximetry Heart rate Respiratory rate Body temperature Systolic And Diastolic Provider Name and Address Organization Details Last Updated DateTime 3 162.56 cm 26.5 kg/m2 19824.6 2 g 97 % 97 % 112 /min 18 /min 97.5 [degF] 140/88 mm[Hg] Olga Oconnor MA [facility] 3 15:11:36 Date Recorded Body height Body mass index (BMI) Body weight Heart rate Systolic And Diastolic Provider Name and Address Organization Details Last Updated DateTime 05/06/2023 162.56 cm 26.4 kg/m2 14495.22 g 93 /min 124/86 mm[Hg] Analilia Padilla RN [facility] 05/06/2023 15:13:18 Date Recorded Body height Body mass index (BMI) Body weight Respiratory rate Body temperature Oxygen saturation Oxygen saturation in Arterial blood by Pulse oximetry Heart rate Systolic And Diastolic Provider Name and Address Organization Details Last Updated DateTime 162.56 cm 27 kg/m2 58554.8 g 18 /min 98.6 [degF] 98 % 98 % 96 /min 128/80 mm[Hg] Kavita Daniel [facility] 17:31:41 Social History Question Answer Notes LastModified by Organizat ion Details LastModified Time Tobacco Smoking Status Never Smoker ROB Romero, [facility] 12/30/2014 14:22:20 What Is Your Level Of Caffeine Consumption? Moderate Coffee, Soda And Tea [email or web address] Information not available 12/24/2014 How Much Tobacco Do You Chew? None [email or web address] Information not available 12/30/2014 Which Illicit Or Recreational Drugs Have You Used? None [email or web address] Information not available 12/30/2014 Education 2 Year College [email or web address] Information not available 12/30/2014 Hard Of Hearing Or Deaf In One Or Both Ears? No [email or web address] Information not available 12/30/2014 Legally Blind In One Or Both Eyes? No [email or web address] Information not available 12/30/2014 Live Alone Or With Others? With Others [email or web address] Information not available 12/30/2014 What Was The Date Of Your Most Recent Tobacco Screening? 04/10/2023 [email or web address] Information not available 04/10/2023 How Many Children Do You Have? 0 [email or web address] Information not available 12/30/2014 Are You Sexually Active? No [email or web address] Information not available 12/30/2014 Sex: Unknown Functional Status Question Answer Note LastModified by Organization D etails LastModified Time What is your level of alcohol consumption? None [email or web address] Information not available 12/30/2014 Are you able to care for yourself? Yes [email or web address] Information n ot available 12/30/2014 Mental Status None recorded. Family History Relationship Description Onset Age of this Age Resolved Age Notes LastModified by Organization Details LastModified Time Mother Hypertensive disorder [email or web address] Not available 2014 17:20:26 Mother Diabetes mellitus [email or web address] Not available 2014 17:20:26 Mother Disorder of thyroid gland [email or web address] Not available 2014 17:20:26 Maternal Grandmother Malignant neoplastic disease [email or web address] Not available 2014 17:20:26 Medical History Condition Response Anxiety Disorder Y High Blood Pressure Y Headaches Y Depression Y Gynecological History Statement/Question Response Menses Monthly Y Duration of Flow (days) 5 Flow Moderate LMP Definite Obstetrics History GPAL:G 0 P 0 0 0 0 Immunizations Vaccine Type Date Status Note Provider Nam e and Address Organization Details Recorded Time Tdap 04/10/2023 completed MANDI SANTAMARIA NP Attn: Accounting,[address] [place], [address], [facility] 04/16/2023 08:52:49 Hep B, adult 05/06/2023 completed Analilia Padilla RN [place], [place] 05/06/2023 15:15:56 Hep B, adult 06/20/2023 completed Kavita Sanchez null, [facility] 06/20/2023 11:25:48 Past Encounters Encounter ID Performer Location Encounter Start Date Encounter Closed Date Diagnosis/Indication Diagnosis SNOMED-CT Code Diagnosis ICD10 Code Diagnosis Note [id number] MD Alli Palacios [facility] (Family Med) [address] [place] [address] 12/30/2014 13:53:19 12/31/2014 23:31:02 History of anemia 273608105 History of hypercholesterolemia 898817838 [id number] MD [place] [facility] ([facility]) [address] [place] [address] 01/05/2015 11:45:08 01/05/2015 11:52:22 [id number] NICOLE Gaona [facility] (Family Med) [address] [place] [address] 02/01/2015 15:41:10 02/01/2015 17:23:06 Tuberculosis screening 790512911 [id number] Nikolay John MD [facility] (Family Med) [address] [place] [phone] 05/11/2015 16:20:43 05/12/2015 10:07:47 Migraine 57257352 Depressive disorder 82131512 [id number] Nikolay John MD [facility] (Family Med) [address] [place] [phone] 02/01/2016 15:00:50 02/02/2016 12:33:21 Nausea 201374232 R11.0 [id number] Nikolay John MD [facility] (Family Med) [address] [place] [phone] 11/23/2016 11:01:04 11/29/2016 10:09:35 Depressive disorder 21466855 F32.89 Benign rec urrent vertigo 497602197 H81.90 [id number] Nikolay John MD [facility] (Family Med) [address] [place], [place] [address] 12/21/2016 10:26:41 01/04/2017 10:37:01 Depressive disorder 95631288 F32.89 [id number] Nikolay John MD [facility] (Family Med) [address] [place] [id number] 01/23/2017 14:29:20 02/06/2017 12:53:03 Depressive disorder 47974906 F32.89 Migraine 42344037 G43.90 9 Nausea 119331422 R11.0 [id number] MD Alli Palacios [facility] (Family Med) [address] [place] [id number] 06/27/2017 15:51:47 06/28/2017 08:43:52 Depressive disorder 03981791 F32.89 [id number] MD Alli Palacios [facility] (Family Med) [address] [place] [id number] 08/01/2017 14:35:08 08/02/2017 14:53:57 Migraine 82726752 G43.909 Depressive disorder 3548 9007 F32.89 [id number] Nikolay John MD [facility] ([facility]) [address] [place] [id number] 09/02/2017 14:45:46 09/10/2017 11:58:20 Abdominal pain 06218150 R10.9 [id number] MD Alli Palacios [facility] ([facility]) [address] [place] [id number] 05/01/2018 16:13:15 05/02/2018 11:04:06 Migraine 55252557 G43.909 Closed fra cture of phalanx of finger 93855316 S62.608A [id number] MD Alli Palacios [facility] ([facility]) [address] [place] [id number] 04/14/2019 14:48:13 04/15/2019 11:49:34 Nausea 882544234 R11.0 [id number] MD Alli Palacios [facility] ([facility]) [address] [place] [id number] 8 10/22/2019 12:16:50 10/23/2019 09:33:20 Strain of knee 0723791880 03 S86.911A [id number] MD Alli Palacios [facility] ([facility]) [address] [place] [id number] 11/23/2020 11:30:09 11/24/2020 10:08:08 Gastroesophageal reflux disease 150339364 K21.9 Irritable bowel syndrome 82187568 K58.9 [id number] MD Alli Palacios [facility] ([facility]) [address] [place] [id number] 8 01/23/2021 12:00:10 01/24/2021 15:28:38 Depressive disorder 40019853 F32.89 History of anemia 368832 002 Z86.2 Seasonal allergy 4444956 04 J30.2 [id number] MD [facility] ([facility]) [address] [place] [id number] 12/21/2022 16:47:18 12/25/2022 10:47:47 Migraine 98280244 G43.909 Neuro exam WNLDecreas e consumptio n of sugary and caffeinate d beveragesO ral hydration with water3 meals daily encouraged Vision exam encouraged if not UTDDecreas e screen timeKeep headache diary/logT ylenol or Motrin PRN but ideally not administer ed routinelyD iscussed additional supportive tx for [facility] if desiredMon itor for new or worsening sx, RTC in 1 mo for f/u if no improvemen t Adult heal th examination 744824413 Z00.00 Pt to have routine labs completed. Will notify of results.Ed ucated patient on diet (Mediterra nean) and exercise (30-60 min daily)Disc ussed medication adherence. Pt verbalized understand ing. Irregular periods 744616 07 N92.6 Tachycardia [id number] R00. 0 Urinary tr act infectious disease [id number] N39.0 Seasonal allergy [id number] J30.2 [id number] Nikolay John MD [facility] ([facility]) [address] [place] [phone] 04/10/2023 14:52:00 04/16/2023 10:52:07 Migraine [id number] G43.909 Neuro exam WNLDecreas e consumptio n of sugary and caffeinate d beveragesO ral hydration with water3 meals daily encouraged Vision exam encouraged if not UTDDecreas e screen timeKeep headache diary/logT ylenol or Motrin PRN but ideally not administer ed routinelyD iscussed additional supportive tx for use at homeMonito r for new or worsening sx, RTC in 1 mo for f/u if no improvemen t Active or passive immunization [id number] Z23 Screening mammography of bilateral breasts [id number] 74327 Z12.31 History of urinary tract infection [id number] 107 Z87.440 Overweight [id number] E66 .3 Pt to begin to engage in the following: -Healthy sleep hygiene (phone put away at night, lights out, set bedtime with at least 8 hours sleep)-Exe rcise 30-60 min daily-Make healthy diet choices (Mediterra nean)-Quang k only water or green tea Elevated blood-pressure reading without diagnosis of hypertension [id number] R03.0 Discussed with patient the goal of having a blood pressure of <140/90.Pt to monitor blood pressure at home and notify of >140/90 or <90/60.Edu cated on the risks of a heart attack, stroke, kidney damage, or additional issues if blood pressure is outside of recommende d ranges. Pt verbalized understand ing. [id number] Nikolay John MD [facility] ([facility]) [address] [place] [address] 05/06/2023 11:54:36 05/07/2023 10:46:02 Inadequate immune status [id number] Z28.39 [id number] Nikolay John MD [facility] [address] [place] [address] 06/19/2023 17:15:05 06/20/2023 09:13:40 Active or passive immunization [id number] Z23 Middle ear effusion [id number] H74.8X9 Discussed with patient resolving ear infectionP t to take prescribed antihistam rui and RTC if no improvemen t in symptoms. Overweight [id number] E66 .3 Pt to begin to engage in the following: -Healthy sleep hygiene (phone put away at night, lights out, set bedtime with at least 8 hours sleep)-Exe rcise 30-60 min daily-Make healthy diet choices (Mediterra nean)-Quang goldberg only water or green tea Health Concerns Section Related Observation LastModified by Organization Detai ls LastModified Time None Recorded Concern Status LastModified by Organization Details LastModified Time None Recorded Advance Directives Directive None Recorded Payers Encounter Date Sequence Insurance Name Policy Number Policy Patel Covered Member ID Patel Member ID Guarantor Name 01/23/2021 1 [facility] - DOS PRIOR TO 2021 (MEDICAID REPLACEMENT - HMO) Lorenza Hoskins [id number] Lorenza Hoskins 12/21/2022 1 [facility] - DOS ON OR AFTER 21 (MEDICAID REPLACEMENT - HMO) Lorenza Torresk [id number] Lorenza Gato 04/10/2023 1 [facility] - DOS ON OR AFTER 21 (MEDICAID REPLACEMENT - HMO) Lorenza Gato [id number] Lorenza Gato 05/06/2023 1 [facility] - DOS ON OR AFTER 21 (MEDICAID REPLACEMENT - HMO) Lorenza Gato [id number] Lorenza Gato 06/19/2023 1 [facility] - DOS ON OR AFTER 21 (MEDICAID REPLACEMENT - HMO) Lorenza Gato [id number] Lorenza Gato 06/19/2023 2 [facility] [id number] Lorenza Gato [id number] Lorenza Hoskins Notes Date Note Type Note Provider Name and Address Organization Details Recorded Time 01/23/2021 text/html Patient complain s of skin changes under arm and itching, concerned about lymphoma due to family history of same. Nikolay John MD Attn: Accounting, [address] [place], [address], [facility] 01/23/2021 17:47:22 12/21/2022 text/html The patient presents to the office for a routine office visit. She has a history of migraines for 20+ years. She stated that she sees neurology currently who treats her migraines. She does have a hx of recent dysuria. She has also been dealing with irregular periods. She denies additional symptoms. MANDI SANTAMARIA NP Attn: Accounting, [address] [place], [address], [facility] 12/24/2022 08:09:47 04/10/2023 text/html The patient presents to the office for a routine office visit. The patient is here for a work physical. She has a hx of tachycardia but has seen her slp with normal results from her echocardiogram and stress test. She last saw cardiology on 03/14/23. She has a follow up appointment in 6 months. She does have a chronic hx of migraines with no worsening of symptoms. MANDI SANTAMARIA NP Attn: Accounting, [address] [place], [address], [facility] 04/16/2023 08:56:18 06/19/2023 text/html The patient presents to the office for a routine office visit for a hepatitis B vaccination. She recently had an ear infection that she has been seen in urgent care for and completed her antibiotic regimen yesterday She does endorse ear ringing in the right ear where the infection is. She denies additional symptoms or concerns. MANDI SANTAMARIA NP Attn: Accounting[address] [place], [address], [facility] 06/19/2023 20:32:42 OBGyn Episode No OBEpisode recorded.
--- OUTSIDE RECORDS SUMMARY | 2025-03-01 12:12 | XMS_ITS | Data Portability ---
Author Organization [facility] [employer] , [facility] Address [address] [place] [address] Assessment No assessment recorded. Plan of Treatment Reminders Order Date Submit Date Provider Last Modified By Organization Details Last Modified Time Details Appointments None recorded. Lab HPV E6+E7 mRNA, qualitative PCR, cervix 2024 025 [employer] [facility], [address] [place], [address], 5 15:39:14 pap, LB 2024 025 [facility], [address] [place], [address], 5 15:01:30 urinalysis, dipstick 2022 023 [facility], [facility] [place], [address], 3 16:30:11 HPV E6+E7 mRNA, qualitative PCR, cervix 2022 023 [employer] [facility], [address] [place], [address], 3 14:24:00 pap, LB 2022 023 [facility], [address] [place], [address], 3 11:15:29 Referral None recorded. Procedures None recorded. Surgeries None recorded. Imaging MAMMO, screening, digital, bilateral 2024 025 FABIAN Not available 19:19:37 Medication Orders Slynd 4 mg (28) tablet 2024 025 [id number], [address], [place], [address], 19:20:37 Detrol LA 2 mg capsule,ext ended release 2022 023 [email or web address] [id number], [address], [place], [address], 15:55:51 Patient TargetsNo targets recorded. Patient Instructions Encounter Date Encounter Id Patient Instructions Last Modified By Organization Details Last Modified Time 07/13/2023 [id number] eating healthy foods: care instructions Not available 07/13/2023 12:29:42 general health care education Not available 07/13/2023 12:29:42 12/22/2024 [id number] Patient Health Questionnaire-9* [id number] Not available 01/22/2025 09:29:19 eating healthy foods: care instructions Not available 12/23/2024 20:25:14 general health care education Not available 12/23/2024 20:25:14 body mass index: care instructions Not available 12/23/2024 20:25:14 mammogram: about this test Not available 12/23/2024 20:25:14 Reason for Referral None Reported. Results Created Date Observation Date Name Description Value Unit Range Abnormal Flag Note LastModifiedBy Organization Detail LastModifiedTime 07/13/2007/17/2023 HPV HIGH RISK HPV high risk Negati ve negati ve normal The HPV High Risk assay is inten ded for use as co-te sting with cytol ogy and not as a subst itute for regul ar cervi bart cytol ogy scree javi. This assay is not inten ded for use as a scree javi devic e for women under age 30 with mallika l cervi bart cytol ogy. Not Available [facility] [address] [place], [address], 07/17/2023 14:24:00 07/13/2007/18/2023 THINP REP TIS PAP clinical information: normal None given Not Available [address] [address] [place], [address], 07/18/2023 11:15:29 07/13/2007/18/2023 THINP REP TIS PAP LMP: normal NONE GIVEN Not Available [address] [address] [place], [address], 07/18/2023 11:15:29 07/13/2007/18/2023 THINP REP TIS PAP prev. Pap: normal NONE GIVEN Not Available [address] [address] [place], [address], 07/18/2023 11:15:29 07/13/2007/18/2023 THINP REP TIS PAP prev. BX: normal NONE GIVEN Not Available [address] [address] [place], [address], 07/18/2023 11:15:29 07/13/2007/18/2023 THINP REP TIS PAP source: normal Cervi x Not Available [address] [place], [address], 07/18/2023 11:15:29 07/13/2007/18/2023 THINP REP TIS PAP statement of adequacy: normal Satis facto ry for evalu ation . Endoc ervic al/tr ansfo rmati on zone compo nent prese nt. Age and/o r menst rual statu s not provi ded Not Available [address] [address] [place], [address], 07/18/2023 11:15:29 07/13/20 23 07/18/2023 THINP REP TIS PAP interpretati on/result: normal Cytol ogy Resul ts: Negat marlee for intra epith elial lesio n or yaz bennett . Not Available [address] [address] [place], [address], 07/18/2023 11:15:29 07/13/2007/18/2023 THINP REP TIS PAP comment: normal This Pap test has been evalu ated with compu ter raghu lucero techn ology . Not Available [address] [address] [address], [place], [address], 07/18/2023 11:15:29 07/13/2007/18/2023 THINP REP TIS PAP cytotechnolo gist: normal TMK, CT( CP) CT scree javi locat ion: [address] [address] [place] [address] Not Available [address] [address] [address], [place], [address], 07/18/2023 11:15:29 07/13/2007/18/2023 THINP REP TIS PAP comment EXPLA NATOR Y NOTE: The Pap is a scree javi test for cervi bart cance r. It is not a diagn ostic test and is subje ct to false negat marlee and false posit marlee resul ts. It is most relia ble when a satis facto ry sampl e, regul romulo obtai shayy, is submi tted with relev ant clini bart findi ngs and histo ry, and when the Pap resul t is evalu ated along with histo bella and curre nt clini bart infor matio n. Not Available [address] [address] [place], [address], 07/18/2023 11:15:29 07/13/2007/13/2023 urina lysis , dipst ick Leukocytes Negati ve Not Available [facility] [address] [facility], [place], [address], 07/13/2023 12:44:11 07/13/2007/13/2023 urina lysis , dipst ick Nitrite negati ve Not Available [facility] [address], [place], [address], 07/13/2023 12:44:11 07/13/2007/13/2023 urina lysis , dipst ick Urobilinogen .2 Not Available [facility] [address], [place], [address], 07/13/2023 12:44:11 07/13/2007/13/2023 urina lysis , dipst ick Protein Trace Not Available [facility] [address], [place], [address], 07/13/2023 12:44:11 07/13/2007/13/2023 urina lysis , dipst ick pH 8.0 Not Available [facility] [address], [place], [address], 07/13/2023 12:44:11 07/13/2007/13/2023 urina lysis , dipst ick Blood Negati ve Not Available [facility] [address], [place], [address], 07/13/2023 12:44:11 07/13/2007/13/2023 urina lysis , dipst ick Specific [place] 1.010 Not Available [facility] [address], [place], [address], 07/13/2023 12:44:11 07/13/2007/13/2023 urina lysis , dipst ick Ketone Negati ve Not Available [facility] [address], [place], [address], 07/13/2023 12:44:11 07/13/2007/13/2023 urina lysis , dipst ick Bilirubin Negati ve Not Available [address], [place], [address], 07/13/2023 12:44:11 07/13/2007/13/2023 urina lysis , dipst ick Glucose Negati ve Not Available [address], [place], [address], 07/13/2023 12:44:11 07/13/2007/13/2023 urina lysis , dipst ick Appearance Clear Not Available [address], [place], [address], 07/13/2023 12:44:11 07/13/2007/13/2023 urina lysis , dipst ick Color Dark Yellow Not Available [address], [place], [address], 07/13/2023 12:44:11 12/23/1912/24/2024 HPV HIGH RISK HPV high risk Negati ve negati ve normal The HPV High Risk assay is inten ded for use as co-te sting with cytol ogy and not as a subst itute for regul ar cervi bart cytol ogy scree jaiv. This assay is not inten ded for use as a scree javi devic e for women under age 30 with mallika l cervi bart cytol ogy. Not Available [facility] [address] [place], [address], 12/24/2024 15:39:14 12/23/1912/25/2024 THINP REP TIS PAP clinical information: normal None given Not Available [employer] [facility] [address] [place], [address], 12/25/2024 15:01:30 12/23/19 25 12/25/2024 THINP REP TIS PAP LMP: normal NONE GIVEN Not Available [address], [address], 12/25/2024 15:01:30 12/23/19 25 12/25/2024 THINP REP TIS PAP prev. Pap: normal NONE GIVEN Not Available [address], [address], 12/25/2024 15:01:30 12/23/19 25 12/25/2024 THINP REP TIS PAP prev. BX: normal NONE GIVEN Not Available [address], [address], 12/25/2024 15:01:30 12/23/19 25 12/25/2024 THINP REP TIS PAP source: normal Cervi x Not Available [address], [address], 12/25/2024 15:01:30 12/23/19 25 12/25/2024 THINP REP TIS PAP statement of adequacy: normal Satis facto ry for evalu ation . Endoc ervic al/tr ansfo rmati on zone compo nent prese nt. Age and/o r menst rual statu s not provi ded Not Available [address], [address], 12/25/2024 15:01:30 12/23/19 25 12/25/2024 THINP REP TIS PAP interpretati on/result: normal Cytol ogy Resul ts: Negat marlee for intra epith elial aaron n or yaz bennett . Not Available [address], [address], 12/25/2024 15:01:30 12/23/19 25 12/25/2024 THINP REP TIS PAP comment: normal This Pap test has been evalu ated with compu ter raghu nic techn ology . Not Available [address] [address] [place], [address], 12/25/2024 15:01:30 12/23/1912/25/2024 THINP REP TIS PAP cytotechnolo gist: normal MEF, CT( CP) CT scree javi locat ion: [address] [address] [place] [address] Not Available [employer] [facility] [address] [address] [place], [address], 12/25/2024 15:01:30 12/23/1912/25/2024 THINP REP TIS PAP comment EXPLA NATOR Y NOTE: The Pap is a scree javi test for cervi bart cance r. It is not a diagn ostic test and is subje ct to false negat marlee and false posit marlee resul ts. It is most relia ble when a satis facto ry sampl e, regul romulo obtai shayy, is submi tted with relev ant clini bart findi ngs and histo ry, and when the Pap resul t is evalu ated along with histo bella and curre nt clini bart infor matio n. Not Available [address] [address] [address], [place], [address], 12/25/2024 15:01:30 12/30/1912/22/2024 MAMMO , scree javi, digit al, bilat eral No observ ation record ed. Not Available 2024 19:19:37 Result Notes None recorded. Problems Name Problem SNOMED Code Status Onset Date Resolution Date Notes Provider Name and Address Organization Details Recorded Time Insertio n of intraute rine contrace ptive device done 59257720533 9109 Completed 201708/11/2019 Encounte r for insertio n of intraute rine contrace ptive device; Location : None Severity : Moderate Progress : Stable Added By: Zonia Reyes Add to Current Problems : YES ProblemS tatus: Current Encounte r for insertio n of intraute rine contrace ptive device; Severity : Moderate Progress : Stable Added By: Zonia Reyes Add to Current Problems : NO ProblemS tatus: Resolve Not Available [facility] 1 04:11:32 Uses combined oral contrace ption [id number] Completed 201709/24/2018 Encounelliot r for surveill ance of contrace ptive pills; Progress : Stable Added By: Braeden Ordonez Add to Current Problems : NO ProblemS tatus: Resolve Not Available [facility] 2 20:33:30 Molluscu m contagio sum infectio n [id number] Completed 201510/16/2016 Molluscu m contagio sum; Location : None Progress : Stable Added By: Jesenia Austin Add to Current Problems : YES ProblemS tatus: Resolve Not Available [facility] 2 20:33:30 Abdomina l pain [id number] Completed 201608/11/2019 Abdomina l pain, NOS; Progress : Stable Added By: Karrie Tian Add to Current Problems : NO ProblemS tatus: Resolve Abdomina l pain, NOS; Location : None Progress : Stable Added By: Karrie Tian Add to Current Problems : YES ProblemS tatus: Current Not Available [facility] 2 08:26:07 Family planning educatio n done [id number] 9104 Completed 201308/10/2015 Family planning advice; Location : None Severity : Moderate Progress : Stable Added By: Zonia Pierre Add to Current Problems : YES ProblemS tatus: Resolve Not Available [facility] 1 04:11:33 Surgical follow-u p - normal [id number] Completed 201608/11/2019 Follow-u p exam followin g surgery; Location : None Severity : Moderate Progress : Stable Added By: Sandi Kirkpatrick Add to Current Problems : YES ProblemS tatus: Current Follow-u p exam followin g surgery; Severity : Moderate Progress : Stable Added By: Sandi Kirkpatrick Add to Current Problems : NO ProblemS tatus: Resolve Not Available [facility] 1 04:11:34 Pure hypercho lesterol emia 294339779 Completed 201308/10/2015 Elevated choleste rol; Location : None Progress : Stable Added By: Jesenia Austin Add to Current Problems : NO ProblemS tatus: Resolve Not Available [facility] 2 08:26:07 Female genital organ symptoms 241778278 Completed 201608/11/2019 Female pelvic pain; Progress : Stable Added By: Zonia Reyes Add to Current Problems : NO ProblemS tatus: Resolve Pelvic pain; Progress : Stable Added By: Thelma Mclean Add to Current Problems : NO ProblemS tatus: Resolve; Start Date : 08/10/20 15 Pelvi c pain; Location : None Progress : Stable Added By: Zonia Reyes Add to Current Problems : YES ProblemS tatus: Current; Start Date : 12/08/19 17 Not Available [facility] 2 20:33:29 Acute back pain with sciatica [id number] Completed 201602/05/2017 Sciatic pain; Location : None Progress : Stable Added By: Jesenia Austin Add to Current Problems : YES ProblemS tatus: Resolve Lumbago with sciatica , left side; Progress : Stable Added By: Jesenia Austin Add to Current Problems : NO ProblemS tatus: Resolve; Start Date : 11/15/19 17 Sciat ic pain; Location : None Progress : Stable Added By: Zonia Reyes Add to Current Problems : NO ProblemS tatus: Resolve; Start Date : 11/15/19 17 Not Available [facility] 2 08:26:07 Syphilis test finding [id number] Completed 201505/19/2017 Encounte r for screenin g for infectio ns with a predomin antly sexual mode of transmis jacquelin; Progress : Stable Added By: Ramya Ramos Add to Current Problems : NO ProblemS tatus: Resolve Not Available [facility] 2 20:33:29 Irregula r periods [id number] Completed 201607/05/2017 Menses, Irregula r; Location : None Progress : Stable Added By: Zonia Reyes Add to Current Problems : YES ProblemS tatus: Current; Start Date : 11/15/19 17 Mense s, Irregula r; Location : None Progress : Stable Added By: Zonia Reyes Add to Current Problems : NO ProblemS tatus: Resolve Irregula r menstrua l bleeding ; Location : None Progress : Stable Added By: Jesenia Austin Add to Current Problems : YES ProblemS tatus: Resolve; Start Date : 08/17/20 16 Mense s, Irregula r; Progress : Stable Added By: Thelma Mclean Add to Current Problems : NO ProblemS tatus: Resolve; Start Date : 08/10/20 15 Mense s, Irregula r; Progress : Stable Added By: Pat Navarro Add to Current Problems : NO ProblemS tatus: Resolve; Start Date : 08/26/20 14 Not Available [facility] 2 20:33:31 Venereal disease screenin g Completed 201505/19/2017 Screenin g for STDs; Location : None Progress : Stable Added By: Ramya Ramos Add to Current Problems : YES ProblemS tatus: Resolve Not Available [facility] 2 20:33:26 Problem Notes None recorded. Procedures Surgical History Date Name Laterality Status Provider Name and Address Organization Details Recorded Time 12/23/19 25 Most Recent Mammogram completed Anthony Perez [facility] [employer] 01/01/2025 16:02:00 12/23/19 25 Date of Last Pap Smear completed Adali Castaneda MD [address] [place], [address] [employer] [facility] 12/30/2024 19:21:14 Appendectomy completed Natalie Moreno [facility] [employer] [facility] IV 07/13/2023 12:01:37 Imaging Results None recorded. Procedure Notes None recorded. Medical Equipment None Reported. Allergies Allergen ID Allergen Name Allergen Category Reaction Reaction Severity Criticality Documentation Date Start Date Code Code System Note Provider Name and Address Organization Details Recorded Time 289148 Medicinal product containin g tetracycl ine structure and acting as antibacte rial agent (product) medicatio n Not available Not available Not available 07/28/20212013 69166 1004 SNOMED Sever ity: Moder ate; Not Available [facility] 01:12:08 Medications Name Sig Start Date Stop Date Status Note LastModified by Organization Details LastModified Time tolterodi ne ER 2 mg capsule,e xtended release 24 hr TAKE 1 CAPSULE BY MOUTH EVERY DAY 12/22 completed Not Available Not Available Not Available amoxicill in 500 mg capsule TAKE 1 CAPSULE BY MOUTH TWICE A DAY FOR 10 DAYS active Not Available Not Available No t Available butalbita l-acetami nophen-ca ffeine 50 mg-325 mg-40 mg capsule Take 1 tab po q6 hrs prn for headache 08/17 completed Butalbit al/Aceta minophen /Caffein e 50mg/325 mg/40mg Tablet RxNorm: 678069 Allow Substitu tion: True Refill Denied: No Refill DateOccu rred: 05/06/20 15 Not Available Not Available Not Available verapamil 40 mg tablet TAKE 1 TABLET BY MOUTH THREE TIMES A DAY active Not Available Not Available No t Available cetirizin e 10 mg tablet TAKE 1 TABLET BY MOUTH EVERY DAY active Not Available Not Available No t Available prednison e 20 mg tablet TAKE 1 TABLET ORAL ROUTE ONCE DAILY FOR 5 DAYS 12/21 completed Not Available Not Available Not Available meclizine 12.5 mg tablet Take 1 tablet(s ) by mouth prn 07/13 completed Meclizin e HCl 25mg Tablet RxNorm: 640894 Allow Substitu tion: True Refill Denied: No Refill DateOccu rred: 12/08/19 17 Not Available Not Available Not Available butalbita l-acetami nophen-ca ffeine 50 mg-325 mg-40 mg tablet TAKE 1 TABLET BY MOUTH EVERY 4 HOURS NEEDED FOR HEADACHE *MUST LAST 30 DAYS* active Not Available Not Available No t Available ketorolac 10 mg tablet TAKE 1 TABLET BY MOUTH EVERY 8 HOURS NEEDED FOR SEVERE HEADACHE . *TAKE FOR MAX OF 5 DAYS* active Not Available Not Available No t Available propranol ol 40 mg tablet 07/13 completed Proprano lol HCl 80mg Capsules , Extended Release Allow Substitu tion: True Refill Denied: No Refill DateOccu rred: 03/18/20 17 Not Available Not Available Not Available amoxicill in 875 mg tablet TAKE 1 TABLET BY MOUTH EVERY 12 HOURS FOR 10 DAYS 12/21 completed Not Available Not Available Not Available meclizine 25 mg tablet TAKE 1 TABLET BY MOUTH EVERY DAY NEEDED FOR DIZZINES S active Not Available Not Available No t Available phenazopy ridine 100 mg tablet TAKE 2 TABLETS BY MOUTH 3 TIMES DAILY WITH FOOD FOR 2 DAYS 07/13 completed Not Available Not Available Not Available benzonata te 100 mg capsule TAKE 1 CAPSULE ORAL ROUTE EVERY 8 HOURS NEEDED 12/21 completed Not Available Not Available Not Available Retin-A Micro 0.1 % topical gel Apply thin film to affected area at bedtime 11/15 completed Retin-A Micro 0.1% Topical Gel RxNorm: 620494 Allow Substitu tion: True Refill Denied: No Not Available Not Available Not Available omeprazol e 20 mg capsule,d elayed release TAKE 1 CAPSULE ORAL ROUTE DAILY FOR 14 DAYS 07/13 completed Not Available Not Available Not Available gabapenti n 100 mg capsule TAKE 1 CAPSULE BY MOUTH EVERYDAY AT BEDTIME active Not Available Not Available No t Available methylpre dnisolone 4 mg tablets in a dose pack TAKE 1 DOSE PACK ORAL ROUTE PER PACKAGE DIRECTIO NS TAKE WITH FOOD 07/13 completed Not Available Not Available Not Available ondansetr on 4 mg disintegr ating tablet DISSOLVE 1 TABLET ON THE TONGUE EVERY 8 HOURS active Not Available Not Available No t Available methylphe nidate ER 18 mg tablet,ex tended release 24 hr TAKE 1 TABLET BY MOUTH EVERY DAY IN THE MORNING FOR 14 DAYS 12/21 completed Not Available Not Available Not Available fluticaso ne propionat e 50 mcg/actua tion nasal spray,aliya pension INSTILL 2 SPRAYS INTO EACH NOSTRIL EVERY DAY AT BEDTIME active Not Available Not Available No t Available methylphe nidate ER 36 mg tablet,ex tended release 24 hr TAKE 1 TABLET BY MOUTH EVERY DAY IN THE MORNING FOR 14 DAYS 12/21 completed Not Available Not Available Not Available amoxicill in 875 mg-potass ium clavulana te 125 mg tablet TAKE 1 TABLET BY MOUTH TWICE A DAY FOR 10 DAYS 12/21 completed Not Available Not Available Not Available clindamyc in 1 % lotion APPLY TO AFFECTED AREA TWICE A DAY 12/21 completed Not Available Not Available Not Available Ortho Micronor 0.35 mg tablet 1 tablet daily 12/15 completed Micronor 0.35mg Tablet RxNorm: 878650 Allow Substitu tion: True Refill Denied: No Not Available Not Available Not Available atomoxeti ne 25 mg capsule TAKE 1 CAPSULE BY MOUTH EVERY DAY AFTER 1 WEEK INCREASE TO 40MG AFTER 7 DAYS 12/22 completed Not Available Not Available Not Available atomoxeti ne 40 mg capsule TAKE 1 CAPSULE BY MOUTH EVERY DAY IN THE MORNING FOR 30 DAYS 12/22 completed Not Available Not Available Not Available nitrofura ntoin monohydra te/macroc rystals 100 mg capsule TAKE 1 CAPSULE BY MOUTH TWICE A DAY X5 DAYS 07/13 completed Not Available Not Available Not Available ondansetr on HCl 1 PO Q8H PRN N/V, #10, no RF 07/13 completed Ondanset david HCl 4mg Tablets, Orally Disinteg rating RxNorm: 306398 Allow Substitu tion: True Refill Denied: No Refill DateOccu rred: 05/06/20 15 Not Available Not Available Not Available ferrous sulfate Take 1 tab PO daily 07/13 completed Ferrous Sulfate 325mg Tablets RxNorm: 756693 Allow Substitu tion: True Refill Denied: No Refill DateOccu rred: 05/06/20 15 Not Available Not Available Not Available propranol ol 11/15 completed Proprano lol Allow Substitu tion: True Refill Denied: No Refill DateOccu rred: 08/17/20 16 Not Available Not Available Not Available Micronor 06/18 completed Micronor Allow Substitu tion: True Refill Denied: No Not Available Not Available Not Available escitalop stephanie oxalate Take 1 tablet by mouth daily 07/13 completed Escitalo pram Oxalate 10mg Tablet RxNorm: 562680 Allow Substitu tion: True Refill Denied: No Refill DateOccu rred: 12/08/19 17 Not Available Not Available Not Available atomoxeti ne 80 mg capsule TAKE 1 CAPSULE BY MOUTH EVERY DAY FOR 30 DAYS active Not Available Not Available No t Available butalbita l-acetami nophen-ca ffeine 50 mg-300 mg-40 mg capsule Take 1 tab po q6 hrs prn for headache 08/17 completed Butalbit al/Aceta minophen /Caffein e 50mg/325 mg/40mg Tablet RxNorm: 148585 Allow Substitu tion: True Refill Denied: No Refill DateOccu rred: 05/06/20 15 Not Available Not Available Not Available Lo Loestrin Fe 1 mg-10 mcg (24)/10 mcg (2) tablet 1 po daily 08/10 completed Lo Loestrin Fe Biphasic Tablet Allow Substitu tion: True Refill Denied: No Not Available Not Available Not Available Lo Loestrin Fe 1 po daily 08/05 completed Lo Loestrin Fe Biphasic Tablet Allow Substitu tion: True Refill Denied: No Not Available Not Available Not Available Slynd 4 mg (28) tablet Take 1 tablet every day by oral route. 2024 active Not Available Not Available Not Avai lable [facility] ODT 75 mg disintegr ating tablet TAKE 1 TABLET BY MOUTH EVERY 2 DAYS active Not Available Not Available No t Available Ajovy 225 mg/1.5 mL subcutane ous auto-inje ctor INJECT 225 MG SUBCUTAN EOUSLY EVERY 30 DAYS 07/13 completed Not Available Not Available Not Available Azstarys 39.2 mg-7.8 mg capsule TAKE 1 CAPSULE BY MOUTH EVERY DAY IN THE MORNING FOR 10 DAYS 12/21 completed Not Available Not Available Not Available Qulipta 60 mg tablet TAKE 1 TABLET BY MOUTH EVERY DAY 12/22 completed Not Available Not Available Not Available Vitals Date Recorded Body height Body mass index (BMI) Body weight Systolic And Diastolic Provider Name and Address Organization Details Last Updated DateTime 12/22/2024 162.56 cm 26.1 kg/m2 08002.04 g 118/82 mm[Hg] Triny Isbell [facility] 12/22/2024 15:54:48 Date Recorded Body height Body mass index (BMI) Body weight Body temperature Systolic And Diastolic Provider Name and Address Organization Details Last Updated DateTime 07/13/2023 162.56 cm 25.7 kg/m2 85210.8 6 g 96.6 [degF] 120/70 mm[Hg] Natalie Moreno [employer] [facility] 12:14:49 Social History Question Answer Notes LastModified by Organizat ion Details LastModified Time Tobacco Smoking Status Never Smoker Natalie Moreno null, [place] [employer] [facility] 07/13/2023 12:01:33 If You Are , What Was Your Level Of Alcohol Consumption Prior To ? None [id number] Information not available 07/13/2023 Are You Blind Or Do You Have Difficulty Seeing? No [email or web address] Information not available 07/13/2023 Are You Deaf Or Do You Have Serious Difficulty Hearing? No [email or web address] Information not available 07/13/2023 What Type Of Diet Are You Following? VEGETARIAN [email or web address] Information not available 07/13/2023 How Many Children Do You Have? 0 [email or web address] Information not available 12/21/2024 What Is Your Relationship Status? Single [email or web address] Information not available 07/13/2023 Are You Sexually Active? No [email or web address] Information not available 07/13/2023 Sex: Unknown Functional Status Question Answer Note LastModified by Organizat ion Details LastModified Time Do you use any illicit or recreational drugs? No [email or web address] Information not available 07/13/2023 Do you or have you ever used any other forms of tobacco or nicotine? No Information not available 07/13/2023 What is your level of alcohol consumption? None [email or web address] Information not available 07/13/2023 Are you currently employed? Yes [email or web address] Information not available 12/22/2024 Do you or have you ever used e-cigarettes or vape? Never used electronic cigarettes [id number] Information not available 07/13/2023 What is your exercise level? Occasional [email or web address] Information not available 07/13/2023 Mental Status None recorded. Family History Relationship Description Onset Age of this Age Resolved Age Notes LastModified by Organization Details LastModified Time Mother Cerebrovascu lar accident [email or web address] Not available 07/13/2023 12:01:12 Maternal Grandmother Malignant neoplastic disease [email or web address] Not available 04/2023 12:01:12 Sister Endometriosi s (clinical) [email or web address] Not available 07/13/2023 12:01:12 Medical History Condition Response Frequent Urinary Tract infections Y Seasonal allergies Y Gynecological History Statement/Question Response Flow Light Date of last HPV 12/22/2024 Date of LMP 12/11/2024 HPV Vaccine N Duration of Flow (days) 4 Most Recent Mammogram 12/22/2024 Current Control Method None Age at Menarche 16 Date of Last Colonoscopy Most Recent Bone Density Frequency of Cycle (Q days) 23 Date of Last Pap Smear 12/22/2024 Obstetrics History GPAL:G 0 P 0 0 0 0 Type Value Living 0 Total 0 Past Encounters Encounter ID Performer Location Encounter Start Date Encounter Closed Date Diagnosis/Indication Diagnosis SNOMED-CT Code Diagnosis ICD10 Code Diagnosis Note [id number] Adali Castaneda MD [facility] [address] [place] [address] 07/13/2023 11:56:16 07/13/2023 16:44:13 Gynecologic examination 20502158 Z01.419 Screening for malignant neoplasm of cervix 336699552 Z12.4 Increased frequency of urination 825143543 R35.0 discussed overactive bladder. urine dipstick today is negative for glucose, blood, infection. Advised to decrease intake of soda, coffee, tea and increase water.Disc ussed bladder irritants. Will try detrol [id number] Adali Castaneda MD [facility] [address] [place] [address] 12/22/2024 15:45:42 12/24/2024 10:39:33 Gynecologic examination 33835663 Z01.419 Well woman exam done todayDiscu ssed health screenings Screening for malignant neoplasm of cervix 979324885 Z12.4 Screening for malignant neoplasm of breast 936482200 Z12.39 Depression screening 171 961766 Z13.31 Initial pr escription of oral contraception 778405306 Z30.011 reviewed options for control in the setting of migraine with auraAdvise d that estrogen containing products are not recommende d due to stroke risk, these would include combinatio n ocp, patch, nuvaring. She does not desire Mirena, as she had this in the past and had problems that required removal after 1 year.She desires ocp and she is given samples of Slynd to try, this would also be a good option for endometrio sis.RTC 3 mos Health Concerns Section Related Observation LastModified by Organization Detai ls LastModified Time None Recorded Concern Status LastModified by Organization Details LastModified Time None Recorded Advance Directives Directive None Recorded Payers Insurance Date Sequence Insurance Name Policy Number Policy Patel Covered Member ID Patel Member ID Guarantor Name 07/12/[address] [facility] (MEDICARE REPLACEMENT/A DVANTAGE - HMO) Lorenza Topete Gato [id number] Lorenza Topete Gato 01/04/2025 1 [facility] [id number] Lorenza Topete Gato [id number] Lorenza Topete Gato 12/22/2024 2 [place]: [facility] Lorenza Topete Gato [id number] Lorenza Hoskins Notes Date Note Type Note Provider Name and Address Organization Details Recorded Time 07/13/2023 text/html Lorenza is a 42 year old G0 who presents for annual exam.She is a former pt of Dr Zonia Reyes, last seen here in 2019. Dr Reyes had placed a Mirena IUD, however, she had it removed 1 yr later due to worsening migraines.Dr Reyes had also performed an operative lsc with lysis of adhesions, pt had bowel adhesions. She also had hysteroscopy D and C. She was told she has endometriosisShe had her first mmg 06/2023She reports frequent urination. For example, she notes she will urinate 4 times before noon. 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 She does report that she tends to get UTI's also. Adali Castaneda MD [address] [facility], [place], [address], [facility] 07/13/2023 16:32:59 12/22/2024 text/html Lorenza presents for WWE. Last pap: 2022. LMP: 12-11-2024. She would like to discuss control.She notes having more menstrual pain lately and also painful ovulation. She had used Loloestrin in the past but she has a history of migraine with aura. She states that she gets slurred speech. Some of her migraines are menstrual but also occur at other times.She has a history of endometriosis discovered at a surgery done by Dr Gibson used to take detrol for her bladder, but she notes that this is not a problem for her anymore.Her PHq is 5 Adali Castaneda MD [address] [place], [address], [facility] 12/23/2024 20:11:42 OBGyn Episode No OBEpisode recorded.
--- OUTSIDE RECORDS SUMMARY | 2025-03-01 12:12 | XMS_ITS | Clinical Summary ---
Author Organization [facility] Address [address] [facility] [place] [address] Care Team Providers Care Usability Strategist Name Role Phone Larissa Wilson Primary Care Provider [phone] Source Comments [facility],non-owned Affiliates and Associated Physician Practices is amultiple site organization consisting of ambulatory clinics and hospital sitesin [place], [place], [place] and [place]. This disclosure is being madepursuant to the Care Everywhere program and may not contain all information available regarding this patient. Last updated 18.[facility] Allergies Active Allergy Reactions Criticality Noted Date Comments Escitalopram Psychiatric Medium 01/02/2024 Hallucinations Sumatriptan Swelling 11/17/2018 Tetracycline Rash Medium 07/08/2020 Medications * Be aware that medications may not be up to date on this document. Alwaysverify current medications with the patient. cetirizine (ZyrTEC) 10 MG tablet Take 1 (one) tablet by mouth once daily 12/22/19 23 Active meclizine (Antivert) 25 MG tabletIndicatio ns:Vertigo TAKE 1 TABLET BY MOUTH EVERY DAY NEEDED FOR DIZZINESS 30 tablet 3 07/25/20 23 Active gabapentin (Neurontin) 100 MG capsuleIndicati ons:Intractable chronic migraine without aura and without status migrainosus Take 1 (one) capsule by mouth at bedtime 90 capsule 4 05/20/20 24 Active clindamycin (Cleocin) 1 % lotion Apply to affected area 2 times daily 07/20/20 24 Active ketorolac (Toradol) 10 MG tabletIndicatio ns:Intractable chronic migraine without aura and without status migrainosus TAKE 1 TABLET BY MOUTH EVERY 8 HOURS NEEDED FOR SEVERE HEADACHE. *TAKE FOR MAX OF 5 DAYS* 10 tablet 5 12/08/19 25 Active butalbital-acet aminophen-caffe ine (Fioricet) 50-325-40 MG tabletIndicatio ns:Intractable chronic migraine without aura and without status migrainosus TAKE 1 TABLET BY MOUTH EVERY 4 HOURS NEEDED FOR HEADACHE *MUST LAST 30 DAYS* 20 tablet 5 12/08/19 25 Active verapamil CR (Isoptin-SR) 120 MG tabletIndicatio ns:Intractable chronic migraine without aura and without status migrainosus Take 1 (one) tablet by mouth once daily 90 tablet 4 02/04/20 25 Active rimegepant (Nurtec ODT) 75 MG tabletIndicatio ns:Vestibular migraine,Intrac table chronic migraine without aura and without status migrainosus Take 75 mg by mouth every 2 days 16 tablet 11 02/04/20 25 Active ondansetron, disintegrating, (Zofran ODT) 4 MG tabletIndicatio ns:Vestibular migraine,Intrac table chronic migraine without aura and without status migrainosus,Sabrina tigo,Nausea and vomiting, unspecified vomiting type DISSOLVE 1 TABLET ON THE TONGUE EVERY 8 HOURS 9 tablet 39 02/12/20 25 Active verapamil (Isoptin) 40 MG tabletIndicatio ns:Intractable migraine with aura with status migrainosus Take 1 (one) tablet by mouth 3 times daily 270 tablet 3 11/13/19 24 025 Discontinued(Do se Adjustment) ondansetron, disintegrating, (Zofran ODT) 4 MG tabletIndicatio ns:Vestibular migraine,Intrac table chronic migraine without aura and without status migrainosus,Sabrina tigo,Nausea and vomiting, unspecified vomiting type Take 1 (one) tablet by mouth every 8 hours Allow tablet to dissolve on the tongue 30 tablet 11 11/13/19 24 025 Discontinued rimegepant (Nurtec ODT) 75 MG tabletIndicatio ns:Vestibular migraine,Intrac table chronic migraine without aura and without status migrainosus Take 75 mg by mouth every 2 days 16 tablet 11 11/13/19 24 025 Discontinued(Re order) Active Problems Problem Noted Date Diagnosed Date Depression 01/07/2023 02/18/2023 Family history of congestive heart failure 01/0702/18/2023 Migraines 01/07/2023 02/18/2023 Palpitations 01/07/2023 02/18/2023 Screening for other and unsp ecified cardiovascular conditions 01/07/2023 02/18/2023 Sinus tachycardia 01/07/2023 02/18/2023 Intractable migraine without aura and without status migrainosus 02/20/2019 Irregular periods 05/06/2017 07/24/2023 Overview (07/24/2023): Menses, Irregular; Location: None Progress: Stable Added By: Zonia Reyes Add to Current Problems: YES ProblemStatus: Current; Start Date : 11/15/2016 Menses, Irregular; Location: None Progress: Stable Added By: Zonia Reyes Add to Current Problems: NO ProblemStatus: Resolve Irregular menstrual bleeding; Location: None Progress: Stable Added By: Jesenia Austin Add to Current Problems: YES ProblemStatus: Resolve; Start Date : 08/17/2016 Menses, Irregular; Progress: Stable Added By: Thelma Arthur Add to Current Problems: NO ProblemStatus: Resolve; Start Date : 08/10/2015 Menses, Irregular; Progress: Stable Added By: Pat Navarro Add to Current Problems: NO ProblemStatus: Resolve; Start Date : 08/26/2014 Abdominal pain 03/22/2017 07/24/2023 Overview (07/24/2023): Abdominal pain, NOS; Progress: Stable Added By: Karrie Tian Add to Current Problems: NO ProblemStatus: Resolve Abdominal pain, NOS; Location: None Progress: Stable Added By: Karrie Tian Add to Current Problems: YES ProblemStatus: Current Acute back pain with sciatica 12/06/2016 Overview (07/24/2023): Sciatic pain; Location: None Progress: Stable Added By: Jesenia Austin Add to Current Problems: YES ProblemStatus: Resolve Lumbago with sciatica, left side; Progress: Stable Added By: Jesenia Austin Add to Current Problems: NO ProblemStatus: Resolve; Start Date : 11/15/2016 Sciatic pain; Location: None Progress: Stable Added By: Zonia Reyes Add to Current Problems: NO ProblemStatus: Resolve; Start Date : 11/15/2016 Molluscum contagiosum infection 08/16/2016 07/24/2023 Overview (07/24/2023): Molluscum contagiosum; Location: None Progress: Stable Added By: Jesenia Austin Add to Current Problems: YES ProblemStatus: Resolve Pure hypercholesterolemia 09/14/20142022 Overview (07/24/2023): Elevated cholesterol; Location: None Progress: Stable Added By: Jesenia Austin Add to Current Problems: NO ProblemStatus: Resolve Encounters Date Type Department Care Team Description 02/10/2025 Refill [facility] - Neurology [address] [place] [phone] Gissel Gonzalez APRN-HAT MARKER Refill Request 02/03/2025 2:30 PM CDT Office Visit [facility] [address] [place] [phone] Gissel Gonzalez APRN-HAT MARKER Atypical chest pain (Primary Dx); Vestibular migraine; Intractable chronic migraine without aura and without status migrainosus; Depression, unspecified depression type 02/03/2025 Travel 01/25/2025 Travel 12/07/2024 Refill [facility] [address] [place] [phone] Gissel Gonzalez APRN-HAT MARKER Refill Request from Last 3 Months Family History Medical History Relation Name Comments Diabetes - Type 2 Mother Hypertension Mother Thyroid Disease Mother Relation Name Status Comments Mother Social History Tobacco Use Types Packs/Day Years Used Date Smoking Tobacco: Never Smokeless Tobacco: Never Tobacco Cessation:Counseling Given: Not Answered Alcohol Use Standard Drinks/Week Comments No 0 (1 standard drink = 0.6 oz pur e alcohol) Comments No Sex and Gender Information Value Date Recorded Sex Assigned at Female 10/29/2023 5:59 PM ENGINE LATHE SET UP OPERATOR Legal Sex Female 8:29 AM CDT Gender Identity Female 10/29/2023 5:59 PM ENGINE LATHE SET UP OPERATOR Sexual Orientation Not on file Last Filed Vital Signs Vital Sign Reading Time Taken Comments Blood Pressure 140/97 02/03/2025 2:30 PM CDT Pulse 142 02/03/2025 2:30 PM CDT Temperature 37.2 C (98.9 F) 11/13/2023 3:12 PM ENGINE LATHE SET UP OPERATOR Respiratory Rate 16 07/24/2023 4:01 PM CDT Oxygen Saturation 98% 02/03/2025 2:30 PM CDT Inhaled Oxygen Concentration - - Weight 70.8 kg (156 lb) 02/03/2025 2:30 PM CDT Height 162.6 cm (5' 4) 07/24/2023 4:01 PM CDT Body Mass Index 26.78 07/24/2023 4:01 PM CDT Plan of Treatment Upcoming Encounters Date Type Department Care Team (Late st Contact Info) Description 08/02/2025 3:30 PM CDT Office Visit [facility] - Neurology [address] [place] [phone] Gissel Gonzalez, GRID MAKER-HAT MARKER [address] [place] [address] [place] [phone] 11/02/2025 3:20 PM ENGINE LATHE SET UP OPERATOR [facility] - Dermatology [address] [place] [phone] Isha Jolly MD [address] [place], [place] [address] [phone] Health Maintenance Due Date Last Done Comments LIPID TESTING 1982 PAP SMEAR 1982 HIV SCREENING 1997 HEPATITIS C SCREENING 10/08/2000 DTAP/TDAP/TD VACCINES (1 - Tdap) 2001 HEPATITIS B VACCINE (1 of 3 - 19+ 3-dose series) 2001 COVID-19 VACCINE (1 - 2023-2 5 season) 2024 DEPRESSION SCREENING 10/07/2024 INFLUENZA VACCINE (Season Ended) 2025 MAMMOGRAM 07/03/2025 07/03/2023, 07/03/2023 ZOSTER VACCINE (1 of 2) 2032 HIB VACCINE Aged Out No longer eligi ble based on patient's age to complete this topic HPV VACCINE Aged Out No longer eligi ble based on patient's age to complete this topic MENINGOCOCCAL (Group B) VACCINE SHARED DECISION-MAKING Aged Out No longer eligible based on patient's age to complete this topic MENINGOCOCCAL GROUPS A/C/Y/W VACCINE Aged Out No longer eligible b ased on patient's age to complete this topic PNEUMOCOCCAL VACCINE Aged Out No long er eligible based on patient's age to complete this topic Insurance MEDICAID - [place] Care Teams Usability Strategist Relationship Specialty Start Date End Date Larissa Wilson [address] [facility] [address] [phone] PCP - General 06/24/24
--- OUTSIDE RECORDS SUMMARY | 2025-03-01 12:12 | XMS_ITS | CONTINUITY OF CARE DOCUMENT ---
Author Name barrie modestaerik Address Unknown Organization [facility] Address [address] [facility] [address] [place] [address] Phone [phone] Care Team Providers Care Clinical Secretary Name Role Phone Rafa Kumari MD Unavailable NIKOLAY NASH MD Unavailable [phone] NIKOLAY NASH MD Unavailable [phone] PROBLEMS Condition Status Date Provider Notes Cardiovascular screening active Rafa zhang MD Migraines active Rafa Kumari MD Depression active Rafa Kumari MD Sinus tachycardia active Rafa Kumari MD Palpitations active Rafa Kumari MD Family hx of congestive heart failure (CHF) active 202 12/08/02 Rafa Kumari MD ENCOUNTERS Date Type Provider Location Encounter Diag nosis 1 - 3 In-person encounter Office Visit Rafa Kumari MD [place] [facility] 4 - 5 In-person encounter Office Visit Rafa Kumari MD [place] 5 - 8 In-person encounter Office Visit Rafa Kumari MD [place] [facility] 3 - 3 In-person encounter Office Visit Rafa Kumari MD [place] [facility] Cardiovascular screeningMigrainesDepressionSinus tachycardiaPalpitationsFamily hx of congestive heart failure (CHF) VITAL SIGNS Date Observation Value Provider Body Mass Index (Ratio) 27.63 kg/m2 Vernon Kumari MD blood pressure, diastolic 93 mm[Hg] Teagan nkLogcally blood pressure, systolic 126 mm[Hg] Leah kLog blood pressure, diastolic 93 mm[Hg] Ja rret blood pressure, systolic 126 mm[Hg] Jar ret pulse rate 97 /min Trace y oxygen saturation, oximetry 98 % Trace respiratory rate E&M 14 /min Trace blood pressure, cuff size regular Ja rret weight E&M 161 [lb_av] Trace y height E&M 64 [in_i] Trace y Body Mass Index (Ratio) 27.12 kg/m2 Vernon Kumari MD blood pressure, diastolic 84 mm[Hg] Rishi Kumari MD blood pressure, systolic 105 mm[Hg] Jc margret Kumari MD respiratory rate E&M 15 /min Malorie hansen oxygen saturation, oximetry 98 % Malorie Zhang pulse rate 99 /min Malorie Zhang weight E&M 158 [lb_av] Malorie Zhang height E&M 64 [in_i] Malorie Zhang Body Mass Index (Ratio) 25.92 kg/m2 Vernon Kumari MD pulse rate 88 /min Tanya Cruz blood pressure, diastolic 91 mm[Hg] Jayden Cruz blood pressure, systolic 123 mm[Hg] [facility] sawyer Cruz oxygen saturation, oximetry 98 % Tanya Cruz respiratory rate E&M 18 /min Tanya Cruz weight E&M 151 [lb_av] Tanya Cruz blood pressure, cuff size regular chi Cruz height E&M 64 [in_i] Tanya Nancy weight E&M 147 [lb_av] Karo Ackerman Body Mass Index (Ratio) 25.23 kg/m2 Vernon Kumari MD blood pressure, diastolic 83 mm[Hg] Teagan nkLogcally blood pressure, systolic 123 mm[Hg] Leah Sudarshanogcally blood pressure, diastolic 83 mm[Hg] Jayden Cruz blood pressure, systolic 123 mm[Hg] Winter Cruz oxygen saturation, oximetry 97 % Tanya Nancy respiratory rate E&M 20 /min Tanya Cruz pulse rate 92 /min Tanya Cruz height E&M 64 [in_i] Tanya Cruz weight E&M 147 [lb_av] Tanya Cruz ALLERGIES Allergy Name Onset Date Reaction Criticality Status TETRACYCLINE High Criticality active HISTORY OF MEDICATION USE Medication Status Instructions Dates Provider Indications Com ments meclizine 25 mg tablet active Tanya Cruz ondansetron 4 mg tablet,disintegrating active Tanya Cruz ketorolac 10 mg tablet active Tanya Cruz cetirizine 10 mg tablet active Tanya Cruz butalbital-acetaminophen -caff 50-325-40 mg tablet active Tanya Cruz SOCIAL HISTORY Date Observation Value Provider smoking status Never smoker Rafa werner MD smoking status Never smoker Rafa werner MD social history E&M S moking History: Lola thompson has never smoked. Rafa Kumari MD social history reviewed E&M revi ewed - no changes required Rafa Kumari MD smoking status Never smoker Tanya Cruz number of grandchildren Rafa Kumari MD social history E&M S moking History: Lola thompson has never smoked. Rafa Kumari MD social history reviewed E&M revi ewed - no changes required Rafa Kumari MD smoking status Never smoker Tanya Cruz INSURANCE PROVIDERS Payer name Policy type / Coverage type Ovidio red democrat ID [facility] [id number] [facility] [id number] [facility] AND [facility] Medicaid 3 [id number] ADVANCE DIRECTIVES Name Date DISCUSSED - NO DECISION MADE TREATMENT PLAN Date Name Performer [id number],S, Rafa Linares ra, [place] [id number],S, Rafa Linares ra[place] [id number],S, Rafa Linares ra, [place] [id number],S, Rafa Linares ra, [place] [id number],S, Rafa Linares ra, [place] [id number],S, Rafa Linares ra, MD [id number],W, Rafa Linares ra, MD Cardiology Rafa Haney Cardiology Rafa Haney Cardiology Rafa Haney Cardiology Rafa Haney Cardiology Rafa Haney Cardiology Rafa Haney Cardiology Rafa Haney Cardiology Rafa Haney Cardiology Rafa Haney Cardiology Rafa Haney Cardiology Rafa Haney Cardiology Rafa Haney Cardiology Rafa Haney Date Name CBC (H/H, RBC, INDIC ES, WBC, PLT) BASIC METABOLIC PANE L W/EGFR D-DIMER, QUANTITATIV E Holter Monitor 24 Hr Stress Routine Complete Echo EKG HISTORY OF PROCEDURES Procedure Date Procedure Name Provider Procedure Notes S tatus EKG Rafa Kumari MD complet ed
--- NOTE | 2025-03-01 15:06 | ED_ITS ---
HPI - Headache General Chief Complaint: Headache Stated Complaint: Migraine Time Seen by Provider: 03/01/25 15:01 Source: patient Mode of arrival: ambulatory Limitations: no limitations History of Present Illness HPI Narrative: 44 years old white female with history of migraine headache for years came to the ED by private car with another episode of right side it throbbing headache started 2-3 days ago, not improving on home medications. Patient report some stress and started her menstrual cycles recently which could be the underlying cause of her migraine headache flare. Patient denies any difference between her migraine headache today and the previous ones. She denies any fever or chills or vomiting. Worse with light, better at dark and quite this Related Data Home Medications ?Medication ?Instructions ?Recorded ?Confirmed ?Last Taken ?Type cetirizine 10 mg capsule (All Day 10 mg PO DAILY PRN 03/05/24 03/05/24 Unknown History Allergy (cetirizine)) ketorolac 10 mg tablet 10 mg PO Q8H 03/05/24 03/05/24 Unknown History meclizine 25 mg tablet 25 mg PO BID PRN 03/05/24 03/05/24 Unknown History ondansetron 4 mg disintegrating 4 mg PO Q8H 03/05/24 03/05/24 Unknown History tablet rimegepant 75 mg disintegrating 75 mg PO ONCE PRN 03/05/24 03/05/24 Unknown History tablet (Nurtec ODT) verapamil 40 mg tablet 40 mg PO Q8H 03/05/24 03/05/24 Unknown History Allergies Allergy/AdvReac Type Severity Reaction Status Date / Time tetracycline AdvReac Mild Rash Verified 03/01/25 12:50 Review of Systems Review of Systems: All systems reviewed & are unremarkable except as noted in HPI and below PMFSH Family History Family History Father Alcoholic Alzheimer disease Mother Diabetes mellitus Hypertension Heart disease Depression Social History Social History Smoking status: Never smoker Alcohol intake: current Exam Narrative: General appearance: Well-developed, well-nourished Skin: Normal color Head: Normocephalic, nontraumatic Eyes: Clear conjunctiva ENT: Oropharynx normal, ears normal, nose normal Neck: Supple, nontender Chest and respiratory: Airway patent, no respiratory distress, no accessory muscle use Heart: Regular rate/rhythm Abdomen: Soft, nontender, no organomegaly, quiet bowel sounds Vascular: Normal peripheral pulses, normal capillary refill. Musculoskeletal: Normal range of motion, nontender back Neurologic: Alert and oriented ?3, MANAGER STATISTICAL PROGRAMMING is normal as tested, no gross motor deficit Course Vital Signs Vital signs: Vital Signs Temperature 36.6 C 03/01/25 12:26 Pulse Rate 111 H 03/01/25 12:26 Respiratory Rate 18 03/01/25 12:26 Blood Pressure 146/95 H 03/01/25 12:26 Pulse Oximetry 100 03/01/25 12:26 Temperature 36.6 C 03/01/25 12:26 Pulse Rate 100 03/01/25 17:01 Respiratory Rate 20 03/01/25 17:01 Blood Pressure 129/76 03/01/25 17:01 Pulse Oximetry 100 03/01/25 17:01 MDM - Headache MDM Narrative Medical decision making narrative: Migraine headache similar to the previous ones Vital signs showing blood pressure 146/95, heart rate 111 otherwise within normal limit. Physical examination, showing patient is comfortable not impaired out distress Patient received 1 L normal saline, 30 mg of Toradol, 50 mg of Benadryl and 10 mg of Reglan IV with remarkable improvement. Discharge the pt was discharged to home.the pt,s condition upon discharge was fair,education was provided to the pt in reference to the final impression,discharge study results,treatment,prognosis and need for follow up . Differential Diagnosis Differential diagnosis: Likely other (Migraine headache) Critical Care Time Critical Care Time Critical Care Time: No Discharge Plan Discharge Clinical Impression: Migraine Patient Disposition: Home Condition: Improved Instructions: Migraine Headache (ED) Additional Instructions: Return if symptoms are worsening , call your family physician for appointment, take Tylenol as as needed for aches and pain, continue home medications. Patient Language: Estonian Prescriptions: No Action verapamil 40 mg tablet 40 mg PO Q8H Nurtec ODT 75 mg tablet,disintegrating 75 mg PO ONCE PRN Rx Instructions: as a single dose All Day Allergy (cetirizine) 10 mg capsule 10 mg PO DAILY PRN meclizine 25 mg tablet 25 mg PO BID PRN ketorolac 10 mg tablet 10 mg PO Q8H Rx Instructions: maximum total duration of 5 days from all oral, intranasal, or parenteral formulations ondansetron 4 mg tablet,disintegrating 4 mg PO Q8H fluticasone propionate 50 mcg/actuation spray,suspension See Rx Instructions .ROUTE .COMPLEX Qty: 16 3RF Dose Instruction: INSTILL 2 SPRAYS INTO EACH NOSTRIL EVERY DAY AT BEDTIME Rx Instructions: INSTILL 2 SPRAYS INTO EACH NOSTRIL EVERY DAY AT BEDTIME Follow-up/Referrals: Katie,Larissa Thakkar, WOOD TILE INSTALLATION HELPER [Primary Care Provider] -
[2025-03-01] MEDS: SODIUM CHLORIDE 0.9% IV 1,000 ML 999 ML IV CONT (15:18)
[2025-03-01] MEDS: KETOROLAC 30 MG/ML VIAL (*BKC) IV PUSH (15:19)
[2025-03-01] MEDS: diphenhydrAMINE HCl INJ 50 MG/ML VIAL IV PUSH (15:21)
[2025-03-01] MEDS: METOCLOPRAMIDE HCL INJ 10 MG/2 ML VIAL IV PUSH (15:22)
--- OUTSIDE RECORDS SUMMARY | 2025-03-01 15:28 | XMS_ITS | CONTINUITY OF CARE DOCUMENT ---
Author Name barrie modestaerik Address Unknown Organization [facility] Address [address] [place] [address] Phone [phone] Care Team Providers Care Human Services Case Manager Name Role Phone Rafa Kumari MD Unavailable NIKOLAY NASH MD Unavailable [phone] NIKOLAY NASH MD Unavailable [phone] PROBLEMS Condition Status Date Provider Notes [...] In-person encounter Office Visit Rafa Kumari MD [facility] 4 - 5 In-person encounter Office Visit Rafa Kumari MD [facility] 5 - 8 In-person encounter Office Visit Rafa Kumari MD [facility] 3 - 3 In-person encounter Office Visit Rafa Kumari MD [facility] Cardiovascular screeningMigrainesDepressionSinus tachycardiaPalpitationsFamily hx of congestive [...] Jayden Cruz blood pressure, systolic 123 mm[Hg] [facility] sawyer Cruz oxygen saturation, oximetry 98 [...] Policy type / Coverage type Ovidio red republican ID [facility] [id number] [facility] [id number] [facility] Medicaid 3 [id number] ADVANCE DIRECTIVES Name Date DISCUSSED - NO DECISION MADE TREATMENT PLAN Date Name Performer [id number],S, Rafa Linares ra, [place] [id number],S, Rafa Linares ra, [place] [id number],S, Rafa Linares ra, [place] [id number],S, Rafa Linares ra, [place] [id number],S, Rafa Linares ra, MD [id number],S, Rafa Linares ra, MD [id number],W, Rafa Linares ra, MD Cardiology Rafa Haney [...]
--- OUTSIDE RECORDS SUMMARY | 2025-03-01 15:28 | XMS_ITS | Clinical Summary ---
Author Organization [facility] Address [address] [place] [place] [address] Care Team Providers Care Marketing Intern Name Role Phone Larissa Wilson Primary Care Provider [phone] Source Comments [facility],non-owned Affiliates and Associated Physician Practices is amultiple site organization consisting of ambulatory clinics and hospital sitesin [place], [place], [place] and [place]. This disclosure is being madepursuant to the Care Everywhere program and may not contain all information available regarding this patient. Last updated 18.[facility] Allergies Active Allergy Reactions Criticality Noted Date [...] 02/10/2025 Refill [facility] - Neurology [address] [place] [phone] Gissel Gonzalez APRN-WASH PLANT OPERATOR Refill Request 02/03/2025 2:30 PM CDT Office Visit [facility] [address] [place] [phone] Gissel Gonzalez APRN-WASH PLANT OPERATOR Atypical chest pain (Primary Dx); Vestibular migraine; Intractable chronic migraine without aura and without status migrainosus; Depression, unspecified depression type 02/03/2025 Travel 01/25/2025 Travel 12/07/2024 Refill [facility] [address] [place] [phone] Gissel Gonzalez APRN-WASH PLANT OPERATOR Refill Request from Last 3 Months Family [...] Sex Assigned at Female 10/29/2023 5:59 PM WARPER FIXER Legal Sex Female 8:29 AM CDT Gender Identity Female 10/29/2023 5:59 PM WARPER FIXER Sexual Orientation Not on file Last Filed Vital Signs Vital Sign Reading Time Taken Comments Blood Pressure 140/97 02/03/2025 2:30 PM CDT Pulse 142 02/03/2025 2:30 PM CDT Temperature 37.2 C (98.9 F) 11/13/2023 3:12 PM WARPER FIXER Respiratory Rate 16 07/24/2023 4:01 PM CDT [...] Office Visit [facility]rology [address] [place] [phone] Gissel Gonzalez, LINKER UP-WASH PLANT OPERATOR [address] [place] [address] [place] [phone] 11/02/2025 3:20 PM WARPER FIXER [facility] D[facility] [address] [place] [phone] Isha Jolly MD [address] [place], [place] [address] [phone] Health Maintenance Due Date Last Done Comments [...] topic Insurance MEDICAID - [place] Care Teams Marketing Intern Relationship Specialty Start Date End Date Larissa Wilson [address] [id number] PCP - General 06/24/24
== END 2025-03-01 17:36 | disposition home or self-care (01) ==
PROVIDERS: Emergency Provider Emergency Medicine; PCP Nurse Practitioner Family
DX: G43.909 Migraine, unspecified, not intractable, without status migrainosus (principal); Z79.899 Other long term (current) drug therapy
CPT/HCPCS: 96361; 96374; 96375; 99284; J1200; J1885; J2765; J7030